=== PATIENT | female | born 1950 | race Caucasian/White ===

== ENCOUNTER 2021-01-20 09:14 | Emergency (ER) | payer OTHER ==
--- OUTSIDE RECORDS SUMMARY | 2021-01-20 09:19 | XMS REPORT | Continuity of Care Document ---
:1950 Author Organization [facility] t Address [address] [place]. [address] [place] [address] Care Team Providers Name Role Phone Anthony WAYNE Primary Care Physician Fabian GOEL, Chris Attending Clinician Unavailable Julio César WAYNE Attending Clinician Santiagoqwfloyd DO Attending Clinician Yung Figueroa DO Attending Clinician Singer ENCINAS Attending Clinician Kendy Villa MD Attending Clinician Jesus Alberto Rivera NP Attending Clinician Doctor Unassigned, Name Attending Clinician Unavailable Ktahy GOEL Attending Clinician VEENA FLORES Attending Clinician Unavailable Anthony Attending Clinician Eduardo Attending Clinician Joseph Alejo Attending Clinician Bridgett Wray Attending Clinician Unavailable Rianon, Velasquez Attending Clinician Aaron Attending Clinician Joseph Gunn Attending Clinician Bridgett Abebe Attending Clinician Donnariana Admitting Clinician Daisy WAYNE, Kendy Admitting Clinician [phone] ANTHONY Admitting Clinician Unavailable Eduardo Admitting Clinician Yury Pagan Admitting Clinician Payers Payer Name Policy Type Policy Number Effective Date Expiration Date S ource Problems Condition Condition Condition Status Onset Resolution Last Treating Co mments Source Name Details Category Date Date Treatment Clinician Date Nausea and Nausea and Disease Active [facility]20 [facility] in adult 00:00: Medica l patient patient 00 Center Esophagiti Esophagiti Disease Active Overview [facility] - [facility]: automatic Medical 00 ally from Center request for surgery [id number] Abdominal Abdominal Disease Active [facility] pain pain 2-06 [facility]: Medical 00 Center Allergies, Adverse Reactions, Alerts Allergy Allergy Status Severity Reaction(s) Onset Inactive Treating Comm ents Source Name Type Date Date Clinician ondanset DA Active [facility] [place] 00:[facility]: d 00 [facility] inflixim DA Active [facility] 7[facility]19 [place] 00:00: d 00 [facility] droperid DA Active [facility] 7[facility]19 Clear 00:00: Mares 00 [facility] metoclop DA Active [facility] r[facility] 7-19 Clear 00:00: Mares 00 [facility] Droperid Propensi Active [place] to 5-28 [facility] adverse 00:00: st reaction 00 s to drug [place] Propensi Active [place] [facility] to 5-28 [facility] adverse 00:00: st reaction 00 s to drug Ondanset Propensi Active [place] [facility] Hcl ty to 528 [facility] adverse 00:00: st reaction 00 s to drug [place] Drug Active Other (See Difficult [facility] Allergy Comments) 2-11 y [facility] - 00:[facility]: urinating Medical 00 and burn Center with urination Inflixim Propensi Active [facility] ty to 10-31 [facility] - adverse 00:00: Medical reaction 00 Center s Ondanset Drug Active Other (See [facility] Hcl Intolera Comments) 10-31 [facility] - (Pf) nce 00:00: Medical 00 Center metoclop DA Active [facility] ramide 02-05 [place] 00:00: d 00 Medical [place] oranges DA Active [facility]- [place] 00:00: d 00 Medical [place] ondanset DA Active [facility] HCl - [place] 00:00: d 00 [facility] droperid DA Active [facility] - [place] 00:00: d 00 [facility] Inflixim Propensi Active [place] to 01-26 [facility] adverse 00:00: st reaction 00 s to drug Social History Social Habit Start Date Stop Date Quantity Comments Source History SDOH [facility] Std Drinks [facility] History [facility] - Alcohol Binge Medical [address] Tobacco use and 2019-03-01 2019-03-[address] [facility] [address] [facility] - exposure 00:00:00 00:00:00 [facility] Alcohol intake 2019-03-01 2019-03-[address] [facility] - 00:00:00 00:00:00 non-drinker of Medical Ce nter alcohol (finding) History SDOH 2018-10-31 2018-10-[address] [facility] - Alcohol Frequency 00:00:00 00:00:00 [facility] Sex Assigned At [birth year] [facility] ethodist 00:00:00 00:00:00 Smoking Status Start Date Stop Date Source Never sm[facility] Medications Ordered Filled Start Stop Current Ordering Indication Dosage Frequency Signature Comments Components Source Medication Medication Date Date Medication? Clinician (SIG) Name Name dicyclomine Yes 20mg Take [address] (BENTYL) 20 6-07 by mouth Luke s - mg tablet 17:56: as needed Med ical 30 . Center apixaban Yes 5mg Q.5D Take [address] [address] (ELIQUIS) 5 6-07 by mouth 2 Che kes - mg Tab 17:56: (two) Medical tablet 30 times Center daily. promethazin 2019-0 Yes 25mg Take [address] e 6-07 by mouth [facility] - (PHENERGAN) 17:56: every 6 Med ical 25 MG 30 (six) Center tablet hours as needed for Nausea. omeprazole 2019-0 Yes 40mg Q.5D Take [address] (PRILOSEC) 6-07 by mouth 2 Kun es - 40 MG 17:56: (two) Medical capsule 30 times Center daily. simvastatin 2019- Yes 80mg QD Take [address] (ZOCOR) 80 6-07 by mouth [facility] - MG tablet 17:56: nightly. Medi lucho 30 Center promethazin 2019-0 Yes 25mg Q8H Take 25 mg [facility] e 5-14 by mouth Methodi (PHENERGAN) 00:00: every 8 st 25 MG 00 (eight) tablet hours as needed. HYDROcodone 2019 Yes 1{tbl} Q8H Take 1 [place] -acetaminop 5-14 tablet by Met hodi hen (NORCO) 00:00: mouth st 10-325 mg 00 every 8 per tablet (eight) hours as needed. ALPRAZolam 2019- Yes .5mg Q8H Take 0.[address] (XANAX) 0.5 5-14 mg by Methodi MG tablet 00:00: mouth st 00 every 8 (eight) hours as needed. metoprolol Yes TAKE 1 [place] tartrate 5-13 TABLET (25 Metho di (LOPRESSOR) 00:00: MG) BY st 25 mg 00 MOUTH ONE tablet DAILY omeprazole Yes TAKE 1 [place] (PriLOSEC) 4-11 CAPSULE Method i 40 MG 00:00: (40 MG) BY st capsule 00 MOUTH 3 TIMES PER DAY 30 MINUTES BEFORE MEALS simvastatin 2018-0 Yes 80mg QD Take 80 mg [place] (ZOCOR) 80 4-08 by mouth Metho di MG tablet 00:00: every st 00 evening. HYDROcodone 2019-0 Yes 1{tbl} Take [address] -acetaminop 1-15 tablet by Kun es - hen (TravelatusCO 00:00: mouth Medica l 10-325) 00 every 6 Center 10-325 mg (six) per tablet hours as needed . metoprolol 2017-09 Yes 25mg QD Take [address] (LOPRESSOR) 1-24 by mouth Luke s - 25 MG 00:00: daily. Medical tablet 00 Center hydroCHLORO 2017-09 Yes edema 12.5mg Take 12.[address] thiazide 1-24 mg by [facility] - (HYDRODIURI 00:00: mouth as Me dical L) 12.5 MG 00 needed . Cente r tablet ALPRAZolam 2014-09 Yes 0.5 mg = [address] (XANAX) 0-29 tab, PO, [facility] - 0.25 MG 00:00: TID, PRN Medica l tablet 00 Anxiety, # Center 15 tab, 0 Refill(s) levETIRAcet Yes 1,000 mg = [place] am (KEPPRA) 05-27 2 tab, PO, Me thodi 500 MG 00:00: BID, # 120 st tablet 00 tab, 0 Refill(s) levETIRAcet Yes 500 mg = [address] [facility] [facility] am (KEPPRA) 05-27 tab, PO, Luke s - 500 MG 00:00: daily , # Medica l tablet 00 120 tab, 0 Center Refill(s) Procedures This patient has no known procedures. Plan of Care Planned Activity Planned Date Details Comments Source Future Scheduled 2021-04-25 INFLUENZA VACCINE [place] [facility] 00:00:00 [code = INFLUENZA VACCINE] Future Scheduled 2020-05-26 INFLUENZA VACCINE (#1) [facility] 00:00:00 [code = INFLUENZA Medical Ce nter VACCINE (#1)] Future Scheduled 2020-02-[address] [facility] - Test 00:00:00 malignant neoplasm of Medica l Center colon (procedure) [code = 355959900] Future Scheduled 2019-09-[address] [facility] - Test 00:00:00 WELLNESS (YEAR 2 or Medical Center FIRST YEAR if no IPPE) [code = MEDICARE ANNUAL WELLNESS (YEAR 2 or FIRST YEAR if no IPPE)] Future Scheduled 2014 65+ PNEUMOCOCCAL [place] [facility] Test 00:00:00 VACCINE (1 of 1 - PPSV23) [code = 65+ PNEUMOCOCCAL VACCINE (1 of 1 - PPSV23)] Future Scheduled 2014 PNEUMOCOCCAL 65+ Y[facility] - Test 00:00:00 (1 of 1 - Medical Center [id number] PCV13) [code = PNEUMOCOCCAL 65+ YRS (1 of 1 - [id number] PCV13)] Future Scheduled 1999 BREAST CANCER [place] [facility] Test 00:00:00 SCREENING [code = BREAST CANCER SCREENING] Future Scheduled 1999 COLONOSCOPY SCREENING [place] [facility] 00:00:00 [code = COLONOSCOPY SCREENING] Future Scheduled 1999 SHINGLES VACCINES (#1) [place] [facility] 00:00:00 [code = SHINGLES VACCINES (#1)] Future Scheduled 1967 Hepatitis C screening [place] [facility] 00:00:00 (procedure) [code = 891556999] Future Scheduled 1965 COVID-19 VACCINE (1) [facility] Test 00:00:00 [code = COVID-19 VACCINE (1)] Future Scheduled [address] - Test 00:00:00 malignant neoplasm of Medica l Center breast (procedure) [code = 588374227] Encounters Start End Encounter Admission Attending Care Care Encounter Source Date/Time Date/Time Type Type Clinicians Facility Department ID 2021-01-04 2021-01-04 Transition Emanuel Peralta [id number] 00:00:00 00:00:00 of Care Douglas Velazquezy [id number] [place] [id number] 2020-12-28 2021-01-01 [facility] Marcelo Angela [facility] [id number] 18:29:00 17:50:00 Encounter Candel[facility] [id number] Clear [id number] [place] [id number] [place] [id number] ([facility]) 2020-12-31 2020-12-31 Surgery [facility] [id number] 09:00:00 10:10:00 Health [id number] Clear [id number] [place] [id number] Hospital 020 ([facility]) 2020-11-24 2020-11-24 Patient Henry [facility] [id number] 00:00:00 00:00:00 Outreach Ravin FRIED [id number] Yung [facility] [id number] [place] [id number] 2020-11-03 2020-11-03 Transition Emanuel Peralta [id number] 00:00:00 00:00:00 of Care Douglas Perez Arana [id number] [place] [id number] 2020-05-04 2020-05-04 Transition Emanuel Peralta [id number] 00:00:00 00:00:00 of Care Douglas Velazquezy [id number] [place] [id number] 2020-04-27 2020-05-01 [facility] Cristiano Perez [facility] [id number] 15:05:00 19:00:00 Encounter Ness Villa [id number] [place] [id number] [place] [id number] 2020-02-13 2020-02-13 Emergency [facility] [id number] 12:57:06 21:00:00 Ivette Boswell [id number] [place] [id number] [place] [id number] 2020-02-13 2020-02-13 Orders Doctor SHAWN [id number] 00:00:00 00:00:00 Only Unassigned, LILO [id number] Booker [facility] [id number] [id number] 2019-12-31 2019-12-31 Transition Emanuel Chavez [id number] 00:00:00 00:00:00 of Care Tabatha Arana [id number] [place] [id number] [id number] 2017-12-01 2017-12-01 Outpatient Anthony, [facility] [id number] 08:41:00 23:59:00 Santino 12 2017-12-01 2017-12-01 Outpatient Anthony, [facility] [id number] 08:41:00 23:59:00 Santino 12 2016-10-26 2016-10-26 Outpatient Azizzadeh, [facility] [id number] 14:06:00 23:59:00 Judy 32 2016-10-24 2016-10-24 Outpatient Arkus, [facility] [id number] 06:44:00 09:20:00 Eusebio Joseph 11 2016-03-14 2016-03-14 Outpatient Azizzadeh, [facility] [id number] 11:06:00 23:59:00 Judy 10 2016-02-29 2016-02-29 Outpatient Kamala, [facility] [id number] 05:21:00 08:28:00 Zo Urias 09 2015-09-15 2015-09-15 Outpatient Arkus, [facility] [id number] 07:35:00 10:00:00 Eusebio Joseph 08 2015-08-31 2015-09-02 Outpatient Christian, [facility] [id number] 09:32:00 19:00:00 Robin Velasquez 07 2015-07-23 2015-08-21 Outpatient Azizzadeh, [facility] 3618 [id number] 08:00:00 23:59:00 Judy 00 2015-08-09 2015-08-17 Outpatient Azizzadeh, [facility] 3618 [id number] 17:27:00 18:05:00 Judy 19 2015-07-07 2015-07-24 Outpatient Azizzadeh, [facility] [id number] [id number] 10:01:00 15:00:00 Judy 60 2015-05-29 2015-05-29 Outpatient Banki, [facility] MH[facility] [id number] 10:24:00 15:50:00 Norma 04 2015-05-20 2015-05-20 Outpatient Banki, [facility] [id number] 12:34:00 23:59:00 Norma 03 2015-05-11 2015-05-11 Outpatient Luis A, [facility] [id number] 14:43:00 23:59:00 Mirza Ruiz 02 2014-09-24 2014-09-24 Outpatient Mis, [facility] [id number] 10:47:00 23:59:00 Samuel Urias 00 Results Test Description Test Time Test Comments Results Result Comments Source CBC W/AUTO DIFF 2019-04-16 05:19:00 Test Item Value Reference Range Interpretation Comme nts WHITE BLOOD CELL (test code = WBC) 11.4 K/mm3 3.5-11.0 H RED BLOOD CELL (test code = RBC) 3.29 M/mm3 4.70-6.10 L HEMOGLOBIN (test code = HGB) 10.2 G/DL 10.4-14.9 L HEMATOCRIT (test code = HCT) 32.4 % 31.5-44.1 N MEAN CELL VOLUME (test code = MCV) 98.5 Fl 84.5-98.6 N MEAN CELL HGB (test code = MCH) 31.0 pg 27.0-34.2 N MEAN CELL HGB CONCETRATION (test code = MCHC) 31.5 G/DL 31.5-34. 0 N RED CELL DISTRIBUTION WIDTH (test code = RDW) 12.8 SD 11.5-14. 5 N PLATELET COUNT (test code = PLT) 191.0 K/mm3 150-450 N MEAN PLATELET VOLUME (test code = MPV) 9.80 fL 7.0-10.5 N NEUTROPHIL % (test code = NT%) 69.3 % 40-76 LYMPHOCYTE % (test code = LY%) 10.1 % 20.5-51.1 L MONOCYTE % (test code = MO%) 13.1 % 1.7-9.3 H EOSINOPHIL % (test code = EO%) 6.8 % 0.0-6.0 H BASOPHIL % (test code = BA%) 0.7 % 0.0-2.0 N NEUTROPHIL # (test code = NT#) 7.92 K/mm3 1.8-7.6 H LYMPHOCYTE # (test code = LY#) 1.2 K/mm3 0.6-3.2 N MONOCYTE # (test code = MO#) 1.5 K/mm3 0.3-1.1 H EOSINOPHIL # (test code = EO#) 0.8 K/mm3 0.0-0.4 H BASOPHIL # (test code = BA#) 0.1 K/mm3 0.0-0.1 N MANUAL DIFF REQUIRED (test code = MDIFF) NO DIFF/SCN CRITERIA BASIC METABOLIC [id number] 05:18:00 Test Item Value Reference Range Interpretation Comments SODIUM (test code = NA) 144 mmol/L 134-147 N POTASSIUM (test code = 3.1 mmol/L 3.4-5.0 L K) CHLORIDE (test code = 114 mmol/L 100-108 H CL) CARBON DIOXIDE (test 21 mmol/L 21-32 N code = CO2) ANION GAP (test code = 9.0 GAP calc 4.0-15.0 N GAP) GLUCOSE (test code = 97 MG/DL 70-110 N GLU) BLOOD UREA NITROGEN 7 MG/DL 7-18 N (test code = BUN) GLOMERULAR FILTRATION >=60 max estimate >60 RATE (test code = GFR) estGFR CREATININE (test code = 0.8 MG/DL 0.6-1.0 N CREAT) CALCIUM (test code = CA) 7.9 MG/DL 8.5-10.1 L PROCALCITONIN (PCT)2019-04-15 14:45:00 Test Item Value Reference Range Interpretation Comments PROCALCITONIN (PCT) 0.85 ng/mL 0.00-0.05 A PROCALCI TONIN (PCT) (test code = PROCAL) NORMAL RANGE (ADULT): <0.05 NG/ML. * a concentration < 0.5 ng/mL represent s a low risk of severe sepsis and/or septic s hock.* a concentration > 2 ng/mL represents a hi gh risk of severe seps is and/or septic shock.Neverthel ess, concentrations <0.5 ng/mL do not ex clude aninfection, on account of localized in fections (withoutsystemi c signs) which can be as sociated with such lowconcentratio ns, or a systemic infect ion in its initialstag es (< 6 hours). Further more, increased procalcitoninca n occur without infecti on. PCT concentrations between 0.5and 2.0 ng/m L should be interpreted taking into account thepatient's hi story. It is recommend ed to retest PCT with in6-24 hours if any concentrations <2 ng/mL are obtained. PROCALCITONIN (PCT)2019-04-15 14:45:00 Test Item Value Reference Range Interpretation Comments PROCALCITONIN (PCT) 0.85 ng/mL 0.00-0.05 H PROCALCI TONIN (PCT) (test code = PROCAL) NORMAL RANGE (ADULT): <0.05 NG/ML. * a concentration < 0.5 ng/mL represent s a low risk of severe sepsis and/or septic s hock.* a concentration > 2 ng/mL represents a hi gh risk of severe seps is and/or septic shock.Neverthel ess, concentrations <0.5 ng/mL do not ex clude aninfection, on account of localized in fections (withoutsystemi c signs) which can be as sociated with such lowconcentratio ns, or a systemic infect ion in its initialstag es (< 6 hours). Further more, increased procalcitoninca n occur without infecti on. PCT concentrations between 0.5and 2.0 ng/m L should be interpreted taking into account thepatient's hi story. It is recommend ed to retest PCT with in6-24 hours if any concentrations <2 ng/mL are obtained. BASIC METABOLIC [id number] 04:23:00 Test Item Value Reference Range Interpretation Comments SODIUM (test code = NA) 144 mmol/L 134-147 N POTASSIUM (test code = 3.5 mmol/L 3.4-5.0 N K) CHLORIDE (test code = 115 mmol/L 100-108 H CL) CARBON DIOXIDE (test 21 mmol/L 21-32 N code = CO2) ANION GAP (test code = 8.0 GAP calc 4.0-15.0 N GAP) GLUCOSE (test code = 102 MG/DL 70-110 N GLU) BLOOD UREA NITROGEN 6 MG/DL 7-18 L (test code = BUN) GLOMERULAR FILTRATION >=60 max estimate >60 RATE (test code = GFR) estGFR CREATININE (test code = 0.7 MG/DL 0.6-1.0 N CREAT) CALCIUM (test code = CA) 8.0 MG/DL 8.5-10.1 L CBC W/AUTO [id number] 04:20:00 Test Item Value Reference Range Interpretation Comments WHITE BLOOD CELL (test code = 7.9 K/mm3 3.5-11.0 N WBC) RED BLOOD CELL (test code = RBC) 3.17 M/mm3 4.70-6.10 L HEMOGLOBIN (test code = HGB) 9.9 G/DL 10.4-14.9 L HEMATOCRIT (test code = HCT) 31.5 % 31.5-44.1 N MEAN CELL VOLUME (test code = 99.4 Fl 84.5-98.6 H MCV) MEAN CELL HGB (test code = MCH) 31.2 pg 27.0-34.2 N MEAN CELL HGB CONCETRATION (test 31.4 G/DL 31.5-34.0 L code = MCHC) RED CELL DISTRIBUTION WIDTH (test 12.9 SD 11.5-14.5 N code = RDW) PLATELET COUNT (test code = PLT) 184.0 K/mm3 150-450 N MEAN PLATELET VOLUME (test code = 9.70 fL 7.0-10.5 N MPV) NEUTROPHIL % (test code = NT%) 54.9 % 40-76 N LYMPHOCYTE % (test code = LY%) 20.3 % 20.5-51.1 L MONOCYTE % (test code = MO%) 13.9 % 1.7-9.3 H EOSINOPHIL % (test code = EO%) 10.0 % 0.0-6.0 H BASOPHIL % (test code = BA%) 0.9 % 0.0-2.0 N NEUTROPHIL # (test code = NT#) 4.34 K/mm3 1.8-7.6 N LYMPHOCYTE # (test code = LY#) 1.6 K/mm3 0.6-3.2 N MONOCYTE # (test code = MO#) 1.1 K/mm3 0.3-1.1 N EOSINOPHIL # (test code = EO#) 0.8 K/mm3 0.0-0.4 H BASOPHIL # (test code = BA#) 0.1 K/mm3 0.0-0.1 N MANUAL DIFF REQUIRED (test code = NO DIFF/SCN CRITERIA MDIFF) BASIC METABOLIC [id number] 07:27:00 Test Item Value Reference Range Interpretation Comments SODIUM (test code = NA) 145 mmol/L 134-147 N POTASSIUM (test code = 3.6 mmol/L 3.4-5.0 N K) CHLORIDE (test code = 117 mmol/L 100-108 H CL) CARBON DIOXIDE (test 20 mmol/L 21-32 L code = CO2) ANION GAP (test code = 8.0 GAP calc 4.0-15.0 N GAP) GLUCOSE (test code = 91 MG/DL 70-110 N GLU) BLOOD UREA NITROGEN 7 MG/DL 7-18 N (test code = BUN) GLOMERULAR FILTRATION >=60 max estimate >60 RATE (test code = GFR) estGFR CREATININE (test code = 0.6 MG/DL 0.6-1.0 N CREAT) CALCIUM (test code = CA) 7.8 MG/DL 8.5-10.1 L CBC W/AUTO [id number] 07:21:00 Test Item Value Reference Range Interpretation Comments WHITE BLOOD CELL (test code = 8.2 K/mm3 3.5-11.0 N WBC) RED BLOOD CELL (test code = RBC) 2.97 M/mm3 4.70-6.10 L HEMOGLOBIN (test code = HGB) 9.4 G/DL 10.4-14.9 L HEMATOCRIT (test code = HCT) 29.7 % 31.5-44.1 L MEAN CELL VOLUME (test code = 100.0 Fl 84.5-98.6 H MCV) MEAN CELL HGB (test code = MCH) 31.6 pg 27.0-34.2 N MEAN CELL HGB CONCETRATION (test 31.6 G/DL 31.5-34.0 N code = MCHC) RED CELL DISTRIBUTION WIDTH (test 12.9 SD 11.5-14.5 N code = RDW) PLATELET COUNT (test code = PLT) 173.0 K/mm3 150-450 N MEAN PLATELET VOLUME (test code = 9.80 fL 7.0-10.5 N MPV) NEUTROPHIL % (test code = NT%) 59.3 % 40-76 LYMPHOCYTE % (test code = LY%) 17.6 % 20.5-51.1 L MONOCYTE % (test code = MO%) 13.2 % 1.7-9.3 H EOSINOPHIL % (test code = EO%) 8.9 % 0.0-6.0 H BASOPHIL % (test code = BA%) 1.0 % 0.0-2.0 N NEUTROPHIL # (test code = NT#) 4.83 K/mm3 1.8-7.6 N LYMPHOCYTE # (test code = LY#) 1.4 K/mm3 0.6-3.2 N MONOCYTE # (test code = MO#) 1.1 K/mm3 0.3-1.1 N EOSINOPHIL # (test code = EO#) 0.7 K/mm3 0.0-0.4 H BASOPHIL # (test code = BA#) 0.1 K/mm3 0.0-0.1 N MANUAL DIFF REQUIRED (test code = NO DIFF/SCN CRITERIA MDIFF) PROCALCITONIN (PCT)2019-04-13 15:03:00 Test Item Value Reference Range Interpretation Comments PROCALCITONIN (PCT) 3.67 ng/mL 0.00-0.05 A PROCALC ITONIN (PCT) (test code = PROCAL) NORMAL RANGE (ADULT): <0.05 NG/ML. * a concentration < 0.5 ng/mL represent s a low risk of severe sepsis and/or septic s hock.* a concentration > 2 ng/mL represents a hi gh risk of severe seps is and/or septic shock.Neverthel ess, concentrations <0.5 ng/mL do not ex clude aninfection, on account of localized in fections (withoutsystemi c signs) which can be as sociated with such lowconcentratio ns, or a systemic infect ion in its initialstag es (< 6 hours). Further more, increased procalcitoninca n occur without infecti on. PCT concentrations between 0.5and 2.0 ng/m L should be interpreted taking into account thepatient's hi story. It is recommend ed to retest PCT with in6-24 hours if any concentrations <2 ng/mL are obtained. PROCALCITONIN (PCT)2019-04-13 15:02:00 Test Item Value Reference Range Interpretation Comments PROCALCITONIN (PCT) 3.67 ng/mL 0.00-0.05 H PROCALC ITONIN (PCT) (test code = PROCAL) NORMAL RANGE (ADULT): <0.05 NG/ML. * a concentration < 0.5 ng/mL represent s a low risk of severe sepsis and/or septic s hock.* a concentration > 2 ng/mL represents a hi gh risk of severe seps is and/or septic shock.Neverthel ess, concentrations <0.5 ng/mL do not ex clude aninfection, on account of localized in fections (withoutsystemi c signs) which can be as sociated with such lowconcentratio ns, or a systemic infect ion in its initialstag es (< 6 hours). Further more, increased procalcitoninca n occur without infecti on. PCT concentrations between 0.5and 2.0 ng/m L should be interpreted taking into account thepatient's hi story. It is recommend ed to retest PCT with in6-24 hours if any concentrations <2 ng/mL are obtained. [id number] 08:08:00 Test Item Value Reference Range Interpretation Comments TROPONIN-I (test < 0.015 NG/ML 0.000-0.045 N Negative: </= 0.045 code = TROPI) Positive: >/= 0.046 Correlation wit h serial results, other cardiac markers, and cl inical findings is nec essary to determine the c linical significance of this result. Quantit ative results using d ifferent methodologies s hould not be compared to one another as nume rical results may miguel yby method. Completed by Nursing: NOCOMPREHENSIVE METABOLIC [id number] 07:53:00 Test Item Value Reference Range Interpretation Comments SODIUM (test code = NA) 143 mmol/L 134-147 N POTASSIUM (test code = 3.7 mmol/L 3.4-5.0 N K) CHLORIDE (test code = 114 mmol/L 100-108 H CL) CARBON DIOXIDE (test 21 mmol/L 21-32 N code = CO2) ANION GAP (test code = 8.0 GAP calc 4.0-15.0 N GAP) GLUCOSE (test code = 117 MG/DL 70-110 H GLU) BLOOD UREA NITROGEN 9 MG/DL 7-18 N (test code = BUN) GLOMERULAR FILTRATION >=60 max estimate >60 RATE (test code = GFR) estGFR CREATININE (test code = 0.8 MG/DL 0.6-1.0 N CREAT) TOTAL PROTEIN (test code 5.6 G/DL 6.4-8.2 L = PROT) ALBUMIN (test code = 2.7 G/DL 3.4-5.0 L ALB) GLOBULIN (test code = 2.9 GM/dL GLOB) ALBUMIN/GLOBULIN RATIO 0.9 RATIO 1.2-2.2 L (test code = A/G) CALCIUM (test code = CA) 7.5 MG/DL 8.5-10.1 L BILIRUBIN TOTAL (test 0.20 MG/DL 0.2-1.2 N code = BILT) SGOT/AST (test code = 25 Unit/L 15-37 N AST) SGPT/ALT (test code = 17 Unit/L 12-78 N ALT) ALKALINE PHOSPHATASE 56 Unit/L 45-117 N TOTAL (test code = ALKP) Comment: in [facility] W/AUTO [id number] 07:49:00 Test Item Value Reference Range Interpretation Comments WHITE BLOOD CELL (test code = 8.7 K/mm3 3.5-11.0 N WBC) RED BLOOD CELL (test code = RBC) 2.84 M/mm3 4.70-6.10 L HEMOGLOBIN (test code = HGB) 8.8 G/DL 10.4-14.9 L HEMATOCRIT (test code = HCT) 28.7 % 31.5-44.1 L MEAN CELL VOLUME (test code = 101.1 Fl 84.5-98.6 H MCV) MEAN CELL HGB (test code = MCH) 31.0 pg 27.0-34.2 N MEAN CELL HGB CONCETRATION (test 30.7 G/DL 31.5-34.0 L code = MCHC) RED CELL DISTRIBUTION WIDTH (test 13.0 SD 11.5-14.5 N code = RDW) PLATELET COUNT (test code = PLT) 176.0 K/mm3 150-450 N MEAN PLATELET VOLUME (test code = 9.60 fL 7.0-10.5 N MPV) NEUTROPHIL % (test code = NT%) 68.4 % 40-76 N LYMPHOCYTE % (test code = LY%) 12.7 % 20.5-51.1 L MONOCYTE % (test code = MO%) 13.6 % 1.7-9.3 H EOSINOPHIL % (test code = EO%) 4.7 % 0.0-6.0 N BASOPHIL % (test code = BA%) 0.6 % 0.0-2.0 N NEUTROPHIL # (test code = NT#) 5.96 K/mm3 1.8-7.6 N LYMPHOCYTE # (test code = LY#) 1.1 K/mm3 0.6-3.2 N MONOCYTE # (test code = MO#) 1.2 K/mm3 0.3-1.1 H EOSINOPHIL # (test code = EO#) 0.4 K/mm3 0.0-0.4 N BASOPHIL # (test code = BA#) 0.1 K/mm3 0.0-0.1 N MANUAL DIFF REQUIRED (test code = NO DIFF/SCN CRITERIA MDIFF) Comment: in [id number] 00:33:00 Test Item Value Reference Range Interpretation Comments TROPONIN-I (test < 0.015 NG/ML 0.000-0.045 N Negative: </= 0.045 code = TROPI) Positive: >/= 0.046 Correlation wit h serial results, other cardiac markers, and cl inical findings is nec essary to determine the c linical significance of this result. Quantit ative results using d ifferent methodologies s hould not be compared to one another as nume rical results may miguel yby method. Completed by Nursing: CHLOE RFLX MICR CULT IF [id number] 23:11:00 Test Item Value Reference Range Interpretation Comments UA COLOR (test code = YELLOW discript YEL/STRAW COLU) UA APPEARANCE (test code CLEAR discript CLEAR = APPU) UA GLUCOSE DIPSTICK (test NEGATIVE mg/dL NEG code = DGLUU) UA BILIRUBIN DIPSTICK NEGATIVE mg/dL NEG (test code = BILU) UA KETONE DIPSTICK (test NEGATIVE mg/dL NEG code = KETU) UA SPECIFIC GRAVITY (test <=1.005 SG 1.005-1.030 code = SGU) UA BLOOD DIPSTICK (test NEGATIVE mg/DL NEG code = JANET) UA PH DIPSTICK (test code 5.5 pH UNITS 5.0-7.0 = TIGRE) UA PROTEIN DIPSTICK (test NEGATIVE mg/dL NEG code = PROU) UA UROBILINIOGEN DIPSTICK 0.2 mg/dL <2.0 (test code = URO) UA NITRITE DIPSTICK (test NEGATIVE SCREEN NEG code = ALLIE) UA LEUKOCYTE ESTERASE TRACE Leuk/mcL NEGATIVE A DIPSTICK (test code = LEUU) UA WBC (test code = WBCU) 3-5 #WBC/HPF 0-3 A UA RBC (test code = RBCU) 1-3 #RBC/HPF 0-3 UA BACTERIA (test code = TRACE /HPF NONE-TRACE BACU) UA SQUAMOUS CELLS (test TRACE /HPF NONE code = SQU) UA CULTURE NEEDED? (test NO, WBC<10 Criteria Culture CHK code = UACULT) SOURCE OF URINE: CLEAN CATCHIndication for culture: Suprapubic PainUA RFLX MICR CULT IF [id number] 23:05:00 Test Item Value Reference Range Interpretation Comments UA COLOR (test code = COLU) YELLOW discript YEL/STRAW UA APPEARANCE (test code = CLEAR discript CLEAR APPU) UA GLUCOSE DIPSTICK (test NEGATIVE mg/dL NEG code = DGLUU) UA BILIRUBIN DIPSTICK (test NEGATIVE mg/dL NEG code = BILU) UA KETONE DIPSTICK (test code NEGATIVE mg/dL NEG = KETU) UA SPECIFIC GRAVITY (test <=1.005 SG 1.005-1.030 code = SGU) UA BLOOD DIPSTICK (test code NEGATIVE mg/DL NEG = JANET) UA PH DIPSTICK (test code = 5.5 pH UNITS 5.0-7.0 TIGRE) UA PROTEIN DIPSTICK (test NEGATIVE mg/dL NEG code = PROU) UA UROBILINIOGEN DIPSTICK 0.2 mg/dL <2.0 (test code = URO) UA NITRITE DIPSTICK (test NEGATIVE SCREEN NEG code = ALLIE) UA LEUKOCYTE ESTERASE TRACE Leuk/mcL NEGATIVE A DIPSTICK (test code = LEUU) UA CULTURE NEEDED? (test code Criteria Culture CHK = UACULT) SOURCE OF URINE: CLEAN CATCHIndication for culture: Suprapubic PainCBC W/AUTO [id number] 20:46:00 Test Item Value Reference Range Interpretation Comments WHITE BLOOD CELL (test code = 18.3 K/mm3 3.5-11.0 H WBC) RED BLOOD CELL (test code = RBC) 3.37 M/mm3 4.70-6.10 L HEMOGLOBIN (test code = HGB) 10.6 G/DL 10.4-14.9 N HEMATOCRIT (test code = HCT) 33.6 % 31.5-44.1 N MEAN CELL VOLUME (test code = 99.7 Fl 84.5-98.6 H MCV) MEAN CELL HGB (test code = MCH) 31.5 pg 27.0-34.2 N MEAN CELL HGB CONCETRATION (test 31.5 G/DL 31.5-34.0 N code = MCHC) RED CELL DISTRIBUTION WIDTH 12.9 SD 11.5-14.5 N (test code = RDW) PLATELET COUNT (test code = PLT) 167.0 K/mm3 150-450 N MEAN PLATELET VOLUME (test code 9.80 fL 7.0-10.5 N = MPV) MANUAL DIFF REQUIRED (test code YES DIFF/SCN CRITERIA = MDIFF) WBC [id number] 20:46:00 Test Item Value Reference Range Interpretation Comments SEGMENTED NEUTROPHILS (test 86 % 40-75 H code = SEG) BAND NEUTROPHIL (test code 1 % 0-8 N = BAND) LYMPHOCYTE (test code = 1 % 18.7-40.6 L LYMPH) MONOCYTE (test code = MON) 12 % 3.8-11.4 H ANISOCYTOSIS (test code = NORMAL NONE ANISO) PLATELET ESTIMATE (test ADEQUATE THOUSAND ADEQUATE code = PLTEST) PLATELET MORPHOLOGY (test NORMAL code = PLTMORPH) - CT ABD PELVIS [id number] 20:34:00 Name: HERMELINDA JIM [facility] : 1950 Age/S: 68 / F [address] [facility] Unit #: [id number] Loc: [place] [address] Phys: Samuel Carranza MD Acct: [id number] Dis Date: Status: ADM IN PHONE #: [phone] Exam Date: 04/12/20192015 FAX #: Reason: LLQ pain, hx of chron's EXAMS: CPT: [id number] CT ABD PELVIS W/CONT 03058 CT ABDOMEN AND PELVIS ( with intravenous contrast ) Location Code: S17 CLINICAL INDICATIONS: Left lower quadrant pain. History of Crohn's disease TECHNIQUE: Volumetric acquisition of abdomen from the level of the domes of the diaphragm through the symphysis pubis using 5 mm collimation after the administration of intravenous and oral contrast. Axial and coronal images were interpreted. Dose lowering technique with automatic exposure control utilized. COMPARISON: None available. FINDINGS: Visualized lung bases demonstrate no consolidations or effusions. Thoracic aortic stent is partially visualized. Liver, spleen, pancreas, adrenals and both kidneys are unremarkable. Landeros rgically absent gallbladder, with mild dilatation of the common duct and proximal intrahepaticbiliary tree. Mild pneumobilia visualized. No hydronephrosis seen. Surgical sutures by the distal stomach noted. Visualized loops of bowel are within normal limits. Appendix is not readily identified. Moderate retained fecal material within the proximal to mid colon No evidence of diverticular disease or diverticulitis. Aorta tapers normally without aneurysmal dilatation. No lymphadenopathy. CT Pelvis: The urinary bladder is unremarkable. Uterus surgically absent. Visualized osseous structures demonstrate degenerative changes lower lumbar spine IMPRESSION: 1.No evidence of diverticular disease or diverticulitis. 2. Proximal to mid constipation. 3. Mild hepatic steatosis. PAGE 1 Signed Report (CONTINUED) Name: HERMELINDA JIM [facility] : 1950ge/S: 68 / F [address] [place] Unit #: [id number] Loc: [place] [address] Phys: Samuel Carranza MD Acct: [id number] Dis Date: Status: ADM IN PHONE#: [phone] Exam Date: 04/12/20192015 FAX #: Reason:LLQ pain, hx of chron's EXAMS: CPT: [id number] CT ABD PELVIS W/CONT 25072 <Continued> 4. Status post cholecystectomy, with prominence of the common duct. Mild pn eumobilia. 5. IVC filter and distal thoracic aortic stent noted at 2033 Reported and signed by: Jeremy Calles M.D. CC: Lyubov Parker ANTHROPOLOGICAL LINGUIST; Samuel Carranza MD Technologist:RT Ruben(R)(CT); Fernandez CTDI: DLP: Trnscb Date/Time: 04/12/2019 (2033) [email or web address] Orig Print D/T: S: 04/12/2019 (2036) PAGE 2 Signed Report- CT ABD PELVIS [id number] 20:34:00 Name: HERMELINDA JIM [facility] : 1950 Age/S: 68 / F [place] Unit #: [id number] Loc: [place] [address] Phys: Samuel Carranza MD Acct: [id number] Dis Date: Status: REG ER PHONE #: [phone] Exam Date: 04/12/20192015 FAX #: Reason: LLQ pain, hx of chron's EXAMS: CPT: [id number] CT ABD PELVIS W/CONT 04184 CT ABDOMEN AND PELVIS ( with intravenous contrast ) Location Code: S17 CLINICAL INDICATIONS: Left lower quadrant pain. History of Crohn's disease TECHNIQUE: Volumetric acquisition of abdomen from the level of the domes of the diaphragm through the symphysis pubis using 5 mm collimation after the administration of intravenous and oral contrast. Axial and coronal images were interpreted. Dose lowering technique with automatic exposure control utilized. COMPARISON: None available. FINDINGS: Visualized lung bases demonstrate no consolidations or effusions. Thoracic aortic stent is partially visualized. Liver, spleen, pancreas, adrenals and both kidneys are unremarkable. Surgically absent gallbladder, with mild dilatation of the common duct and proximal intrahepaticbiliary tree. Mild pneumobilia visualized. No hydronephrosis seen. Surgical sutures by the distal stomach noted. Visualized loops of bowel are within normal limits. Appendix is not readily identified. Moderate retained fecal material within the proximal to mid colon No evidence of diverticular disease or diverticulitis. Aorta tapers normally without aneurysmal dilatation. No lymphadenopathy. CT Pelvis: The urinary bladder is unremarkable. Uterus surgically absent. Visualized osseous structures demonstrate degenerative changes lower lumbar spine IMPRESSION: 1.No evidence of diverticular disease or diverticulitis. 2. Proximal to mid constipation. 3. Mild hepatic steatosis. PAGE 1 Signed Report (CONTINUED) Name: [facility] : 1950ge/S: 68 / F [place] Unit #: [id number] Loc: [place] [address] Phys: Samuel Carranza MD Acct: [id number] Dis Date: Status: REG ER PHONE#: [phone] Exam Date: 04/12/20192015 FAX #: Reason:LLQ pain, hx of chron's EXAMS: CPT: [id number] CT ABD PELVIS W/CONT 04108 <Continued> 4. Status post cholecystectomy, with prominence of the common duct. Mild pneumobilia. 5. IVC filter and distal thoracic aortic stent noted at 2033 Reported and signed by: Jeremy Calles M.D. CC: Lyubov Parker NP; Samuel Carranza MD Technologist:Ronda Vela RT(R)(CT); Fernandez CTDI: DLP: Trnscb Date/Time: 04/12/2019 (2033) [email or web address] Orig Print D/T: S: 04/12/2019 (2036) PAGE 2 Signed Report- XR CHEST 1 [id number] 19:57:00 Name: HERMELINDA JIMILVIE [facility] : 1950 Age/S: 68 / F [id number] [place] Unit #: [id number] Loc: [place] [address] Phys: Samuel Carranza MD Acct: [id number] Dis Date: Status: ADM IN PHONE #: [phone] Exam Date: 04/12/2019 1851 FAX #: Reason: Suspected Sepsis EXAMS: CPT: [id number] XR CHEST 1 V 25527 Fluoro Time: DAP (Gy m2): Air Kerma (mGy): CHEST X-RAY 1 VIEW Dictation Location:N13 CLINICAL HISTORY: Sepsis and fever Technique: A single frontal view of the chest was obtained. FINDINGS: Bony structures are unremarkable. Stenting is present in the proximal aorta, which is positioned to the right ofmidline. Hilar outlines are normal. Cardiac size within normal limits. Surgical clips are noted in the right upper quadrant abdomen. There is a Mediport in place from the left with its tip projecting at the SVC. The lungs are clear of infiltrates or suspicious nodules. Nopleural effusion or pneumothorax. IMPRESSION: No acute findings. Clear lungs. Surgical changes to the aorta noted. Electronically Signedby Charis Vela on 04/12/2019 at 1957 Reported and signed by: Suzanne Vela M.D. CC: Lyubov Parker NP; Samuel Carranza MD PAGE 1 Signed Report Name: HERMELINDA JIMILVIE [facility] : 1950 Age/S: 68 / F [id number] [place] Unit #: [id number] Loc: [place] [address] Phys: Samuel Carranza MD Acct: [id number] Dis Date: Status: ADM IN PHONE #: [phone] Date: 04/12/2019 185 FAX #: Reason: Suspected Sepsis EXAMS: CPT: [id number] XR CHEST 1 V 69193 Fluoro Time: DAP (Gy m2): Air Kerma (mGy): <Continued> Technologist: Fernandez Echevarria RT(R)(CT) Trnscb Date/Time: 04/12/2019 (1956) [email or web address] Orig Print D/T: S: 04/12/2019 (1999) PAGE 2 Signed Report- XR CHEST 1 [id number] 19:57:00 Name: HERMELINDA JIM [facility] : 1950 Age/S: 68 / F [address] [place] Unit #: [id number] Loc: [place] [address] Phys: Samuel Carranza MD Acct: [id number] Dis Date: Status: REG ER PHONE #: [phone] Exam Date: 04/12/2019 185 FAX #: Reason: Suspected Sepsis EXAMS: CPT: [id number] XR CHEST 1 V 64952 Fluoro Time: DAP (Gy m2): Air Kerma (mGy): CHEST X-RAY 1 VIEW Dictation Location:N13 CLINICAL HISTORY: Sepsis and fever Technique: A single frontal view of the chest was obtained. FINDINGS: Bony structures are unremarkable. Stenting is present in the proximal aorta, which is positioned to the right ofmidline. Hilar outlines are normal. Cardiac size within normal limits. Surgical clips are noted in the right upper quadrant abdomen. There is a Mediport in place from the left with its tip projecting at the SVC. The lungs are clear of infiltrates or suspicious nodules. Nopleural effusion or pneumothorax. IMPRESSION: No acute findings. Clear lungs. Surgical changes to the aorta noted. Electronically Signedby Charis Vela on 04/12/2019 at 195 Reported and signed by: Suzanne Vela M.D. CC: Lyubov Parker ANTHROPOLOGICAL LINGUIST; Samuel Carranza MD PAGE 1 Signed Report Name: HERMELINDA JIM [place] : 1950 Age/S: 68 / F [address] [place] Unit #: [id number] Loc: [place] [address] Phys: Samuel Carranza MD Acct: [id number] Dis Date: Status: REG ER PHONE #: [phone] Date: 04/12/2019 6134 FAX #: Reason: Suspected Sepsis EXAMS: CPT: [id number] XR CHEST 1 V 63052 Fluoro Time: DAP (Gy m2): Air Kerma (mGy): <Continued> Technologist: Fernandez Echevarria RT(R)(CT) Trnscb Date/Time: 04/12/2019 (1956) [email or web address] Orig Print D/T: S: 04/12/2019 (1999) PAGE 2 Signed ReportCOMPREHENSIVE METABOLIC PANEL 2019-04-12 19:37:00 Test Item Value Reference Range Interpretation Comments SODIUM (test code = NA) 141 mmol/L 134-147 N POTASSIUM (test code = 3.9 mmol/L 3.4-5.0 N K) CHLORIDE (test code = 111 mmol/L 100-108 H CL) CARBON DIOXIDE (test 20 mmol/L 21-32 L code = CO2) ANION GAP (test code = 10.0 GAP calc 4.0-15.0 N GAP) GLUCOSE (test code = 98 MG/DL 70-110 N GLU) BLOOD UREA NITROGEN 12 MG/DL 7-18 N (test code = BUN) GLOMERULAR FILTRATION >=60 max estimate >60 RATE (test code = GFR) estGFR CREATININE (test code = 0.9 MG/DL 0.6-1.0 N CREAT) TOTAL PROTEIN (test code 6.8 G/DL 6.4-8.2 N = PROT) ALBUMIN (test code = 3.3 G/DL 3.4-5.0 L ALB) GLOBULIN (test code = 3.5 GM/dL GLOB) ALBUMIN/GLOBULIN RATIO 0.9 RATIO 1.2-2.2 L (test code = A/G) CALCIUM (test code = CA) 8.0 MG/DL 8.5-10.1 L BILIRUBIN TOTAL (test 0.20 MG/DL 0.2-1.2 N code = BILT) SGOT/AST (test code = 28 Unit/L 15-37 N AST) SGPT/ALT (test code = 19 Unit/L 12-78 N ALT) ALKALINE PHOSPHATASE 70 Unit/L 45-117 N TOTAL (test code = ALKP) CBC W/AUTO [id number] 19:20:00 Test Item Value Reference Range Interpretation Comments WHITE BLOOD CELL (test code = 18.3 K/mm3 3.5-11.0 H WBC) RED BLOOD CELL (test code = RBC) 3.37 M/mm3 4.70-6.10 L HEMOGLOBIN (test code = HGB) 10.6 G/DL 10.4-14.9 N HEMATOCRIT (test code = HCT) 33.6 % 31.5-44.1 N MEAN CELL VOLUME (test code = 99.7 Fl 84.5-98.6 H MCV) MEAN CELL HGB (test code = MCH) 31.5 pg 27.0-34.2 N MEAN CELL HGB CONCETRATION (test 31.5 G/DL 31.5-34.0 N code = MCHC) RED CELL DISTRIBUTION WIDTH 12.9 SD 11.5-14.5 N (test code = RDW) PLATELET COUNT (test code = PLT) 167.0 K/mm3 150-450 N MEAN PLATELET VOLUME (test code 9.80 fL 7.0-10.5 N = MPV) MANUAL DIFF REQUIRED (test code YES DIFF/SCN CRITERIA = MDIFF) WBC [id number] 19:20:00 Test Item Value Reference Range Interpretation Comments SEGMENTED NEUTROPHILS (test code = SEG) % 40-75 LYMPHOCYTE (test code = LYMPH) % 18.7-40.6 CBC W/AUTO [id number] 19:20:00 Test Item Value Reference Range Interpretation Comments WHITE BLOOD CELL (test code = 18.3 K/mm3 3.5-11.0 H WBC) RED BLOOD CELL (test code = RBC) 3.37 M/mm3 4.70-6.10 L HEMOGLOBIN (test code = HGB) 10.6 G/DL 10.4-14.9 N HEMATOCRIT (test code = HCT) 33.6 % 31.5-44.1 N MEAN CELL VOLUME (test code = 99.7 Fl 84.5-98.6 H MCV) MEAN CELL HGB (test code = MCH) 31.5 pg 27.0-34.2 N MEAN CELL HGB CONCETRATION (test 31.5 G/DL 31.5-34.0 N code = MCHC) RED CELL DISTRIBUTION WIDTH 12.9 SD 11.5-14.5 N (test code = RDW) PLATELET COUNT (test code = PLT) 167.0 K/mm3 150-450 N MEAN PLATELET VOLUME (test code 9.80 fL 7.0-10.5 N = MPV) MANUAL DIFF REQUIRED (test code YES DIFF/SCN CRITERIA = MDIFF) WBC [id number] 19:20:00 Test Item Value Reference Range Interpretation Comments SEGMENTED NEUTROPHILS (test code = SEG) % 40-75 LYMPHOCYTE (test code = LYMPH) % 18.7-40.6 TROPONIN I [id number] 19:13:00 Test Item Value Reference Range Interpretation Comments TROPONIN I RAPID 0.00 ng/mL 0.00-0.08 N - The use o f serial (test code = sampling and te sting TROPIRAP) protocol is a recommended pra ctice- An elevated tro ponin level alone is often not sufficient for diagnosis of my ocardial infarction. LACTIC ACID [id number] 18:56:00 Test Item Value Reference Range Interpretation Comments LACTIC ACID POC (test code = 1.27 MMOL/L 0.90-1.70 N LACTP) TISSUE [id number] 09:45:00Surgical Pathology Report Case: [id number] Authorizing Provider: Georgiana Marquez MD Collected: 02/28/2019 1004 Ordering Location: [address] Med/Surg Received: 02/28/2019 1022 Pathologist: Suzanne Morales MD Specimens: A) - Biopsy, Gastric B) -Biopsy, Esophagus A. STOMACH, BIOPSY: - ANTRAL AND OXYNTIC MUCOSA WITH CHRONIC INACTIVE GASTRITIS - NO INTESTINAL METAPLASIA, DYSPLASIAOR MALIGNANCY SEEN - NEGATIVE FOR H. PYLORI ORGANISMSB. ESOPHAGUS, BIOPSY: - SUPERFICIAL FRAGMENTS OF SQUAMOUS EPITHELIUM WITH MILD CHRONIC INFLAMMATION - SEPARATE MINUTE FRAGMENT OF COLUMNAR EPITHELIUM WITH NO SIGNIFICANT PATHOLOGIC ALTERATION - NO INTESTINAL METAPLASIA, DYSPLASIA OR MALIGNANCY SEEN Signing Pathologist Direct Phone Line: [phone] signed by Suzanne Morales MD on 03/01/2019 at 9:45 AMMG/[id number] Esophagitis A. Biopsy gastric. B. Biopsy esophagus Specimen A is received in fixative and designated as "biopsy gastric", consists of two pink-sewell tissue fragments ranging in size from 0.3 to 0.5 cm in greatest dimension. Both tissue fragments are submitted into A1.Specimen B is received in fixative and designated as "biopsy esophagus", consists of two white-sewell tissue fragments ranging in size from 0.1 to 0.2 cm in greatest dimension. Both tissue fragments are submitted into B1. MG/ew A-B. Performed The interpretation of this case included the use of immunohistochemistry or special stains.Jazmyn Schmidt: Negative for Helicobacter pylori organisms.Control Slides Examined: In-house known positive controls were evaluated along with the testtissue. These control slides run alongside of the patients sample show appropriate staining. Internal positive and negative controls when available are evaluatedSt. [facility], [facility], [address] [place] [address], [facility], Department of Pathology, [address] [place] [address], [facility], Department of Pathology, [address] [place] [address], ZO, [id number] 17:14:00WITH ORAL CONTRASTFINAL REPORT CT of the abdomen and pelvis History: Abdominal distention Comparison: CTA of the chest abdomen and pelvis dated 02/21/2019. Technique: Multidetector CT scanning of the abdomen and pelvis was performed from the level of the lung bases to the inferior pubic ramus without IV and with oral contrast.DOSE REDUCTION: The examination was performed according to departmental dose-optimization program which includes automated exposure control, adjustment of the mA and/or kV according to patient size and/or use of iterative reconstruction technique. Discussion: The patient has a right-sided thoracic aorta. End of the stent is partially visu alized within the thoracic aorta. There is a trace right pleural effusion. Bibasilar atelectasis is present. Lack of IV contrast evaluation of solid and hollow visceral organs. No focal hepatic lesionsare identified. Pneumobilia is present likely from prior sphincterotomy. The gallbladder is surgically absent. The spleen is within normal limits. The bilateral adrenal glands are unremarkable. The kidneys are normal in size. There is no hydroureteronephrosis bilaterally. No obstructing renal calculi are identified. The patient is status post gastrojejunostomy. The small bowel is decompressed. There is a large amount of retained fecal material in the transverse colon which extends down into the pelvis. The descending and sigmoid colon are relatively decompressed. There are scattered colonic diverticula without evidence of acute diverticulitis. There is no free intraperitoneal air or ascites. The urinary bladder is within normal limits. Patient is status post hysterectomy. The abdominal aorta is of normal course and caliber. No acute osseous abdomen bodies are identified. IMPRESSION:1. Large amount of retained fecal material in the colon compatible with constipation.2. Status post gastrojejunostomy, hysterectomy, and cholecystectomy. Signed: Layton Leger Verified Date/Time: 02/29/20 17:14:55 Reading Location: [facility] Radiology Reading Room RAD, ABDOMEN/KUB 1 VIEW [id number] 14:30:00Reason for exam:->abdominal pain and distentionShould this be performed at the bedside?->YesFINAL REPORT Abdomen, one view CLINICAL INDICATION: Abdominal pain and distention COMPARISON: CT the abdomen and pelvis dated 02/21/2019 IMPRESSION: There is mild gaseous distention of the colon. No dilated loops of small bowel are identified. IVC filter is in place. Cholecystectomy clips are identified in the right upper quadrant. Signed: Layton Leger MDRzurdoVendigi Verified Date/Time: 02/28/2019 14:30:59 Reading Location: [facility] Radiology Reading Room [facility] METABOLIC PANEL 2019-02-27 11:07:00 Test Item Value Reference Range Interpretation Comments SODIUM (BEAKER) 141 meq/L 135-148 (test code = 381) POTASSIUM (BEAKER) 3.8 meq/L 3.6-5.5 (test code = 379) CHLORIDE (BEAKER) 111 meq/L 98-106 H (test code = 382) CO2 (BEAKER) (test 22 meq/L 20-29 code = 355) BLOOD UREA NITROGEN 9 mg/dL 10-26 L (BEAKER) (test code = 354) CREATININE (BEAKER) 0.78 mg/dL 0.50-1.20 (test code = 358) GLUCOSE RANDOM 103 mg/dL 70-110 (BEAKER) (test code = 652) CALCIUM (BEAKER) 8.1 mg/dL 8.5-10.5 L (test code = 697) EGFR (BEAKER) (test 73 mL/min/1.73 ESTIMA BEENA GFR IS code = 1092) sq m NOT ACCURATE CREATININE CLEARANCE IN PREDICTING GLOMERULAR FILTRATION RATE . ESTIMATED GFR I S NOT APPLICABLE FOR DIALYSIS PATIEN TS. CBC W/PLT COUNT & AUTO [id number] 10:52:00 Test Item Value Reference Range Interpretation Comments WHITE BLOOD CELL COUNT (BEAKER) 12.9 K/ L 4.0-10.0 H (test code = 775) RED BLOOD CELL COUNT (BEAKER) 3.63 M/ L 4.00-5.00 L (test code = 761) HEMOGLOBIN (BEAKER) (test code = 11.3 GM/DL 12.0-15.5 L 410) HEMATOCRIT (BEAKER) (test code = 33.6 % 36.0-46.0 L 411) MEAN CORPUSCULAR VOLUME (BEAKER) 92.6 fL 82.0-99.0 (test code = 753) MEAN CORPUSCULAR HEMOGLOBIN 31.1 pg 27.0-33.0 (BEAKER) (test code = 751) MEAN CORPUSCULAR HEMOGLOBIN CONC 33.6 GM/DL 32.0-36.0 (BEAKER) (test code = 752) RED CELL DISTRIBUTION WIDTH 13.2 % 12.0-15.0 (BEAKER) (test code = 412) PLATELET COUNT (BEAKER) (test 231 K/CU MM 150-430 code = 756) MEAN PLATELET VOLUME (BEAKER) 9.5 fL 6.0-11.5 (test code = 754) NUCLEATED RED BLOOD CELLS 0 /100 WBC 0-0 (BEAKER) (test code = 413) NEUTROPHILS RELATIVE PERCENT 72 % (BEAKER) (test code = 429) LYMPHOCYTES RELATIVE PERCENT 12 % (BEAKER) (test code = 430) MONOCYTES RELATIVE PERCENT 13 % (BEAKER) (test code = 431) EOSINOPHILS RELATIVE PERCENT 1 % (BEAKER) (test code = 432) BASOPHILS RELATIVE PERCENT 0 % (BEAKER) (test code = 437) NEUTROPHILS ABSOLUTE COUNT 9.33 K/ L 1.80-8.00 H (BEAKER) (test code = 670) LYMPHOCYTES ABSOLUTE COUNT 1.54 K/ L 1.48-4.50 (BEAKER) (test code = 414) MONOCYTES ABSOLUTE COUNT (BEAKER) 1.73 K/ L 0.00-1.30 H (test code = 415) EOSINOPHILS ABSOLUTE COUNT 0.11 K/ L 0.00-0.50 (BEAKER) (test code = 416) BASOPHILS ABSOLUTE COUNT (BEAKER) 0.03 K/ L 0.00-0.20 (test code = 417) IMMATURE GRANULOCYTES-RELATIVE 1 % 0-0 H PERCENT (BEAKER) (test code = 2801) BASIC METABOLIC [id number] 06:25:00 Test Item Value Reference Range Interpretation Comments SODIUM (BEAKER) 142 meq/L 135-148 (test code = 381) POTASSIUM (BEAKER) 3.3 meq/L 3.6-5.5 L (test code = 379) CHLORIDE (BEAKER) 112 meq/L 98-106 H (test code = 382) CO2 (BEAKER) (test 20 meq/L 20-29 code = 355) BLOOD UREA NITROGEN 8 mg/dL 10-26 L (BEAKER) (test code = 354) CREATININE (BEAKER) 0.77 mg/dL 0.50-1.20 (test code = 358) GLUCOSE RANDOM 116 mg/dL 70-110 H (BEAKER) (test code = 652) CALCIUM (BEAKER) 7.7 mg/dL 8.5-10.5 L (test code = 697) EGFR (BEAKER) (test 74 mL/min/1.73 ESTIMA BEENA GFR IS code = 1092) sq m NOT ACCURATE CREATININE CLEARANCE IN PREDICTING GLOMERULAR FILTRATION RATE . ESTIMATED GFR I S NOT APPLICABLE FOR DIALYSIS PATIEN TS. CBC W/PLT COUNT & AUTO [id number] 06:08:00 Test Item Value Reference Range Interpretation Comments WHITE BLOOD CELL COUNT (BEAKER) 11.8 K/ L 4.0-10.0 H (test code = 775) RED BLOOD CELL COUNT (BEAKER) 3.66 M/ L 4.00-5.00 L (test code = 761) HEMOGLOBIN (BEAKER) (test code = 11.0 GM/DL 12.0-15.5 L 410) HEMATOCRIT (BEAKER) (test code = 34.2 % 36.0-46.0 L 411) MEAN CORPUSCULAR VOLUME (BEAKER) 93.4 fL 82.0-99.0 (test code = 753) MEAN CORPUSCULAR HEMOGLOBIN 30.1 pg 27.0-33.0 (BEAKER) (test code = 751) MEAN CORPUSCULAR HEMOGLOBIN CONC 32.2 GM/DL 32.0-36.0 (BEAKER) (test code = 752) RED CELL DISTRIBUTION WIDTH 13.3 % 12.0-15.0 (BEAKER) (test code = 412) PLATELET COUNT (BEAKER) (test 207 K/CU MM 150-430 code = 756) MEAN PLATELET VOLUME (BEAKER) 9.7 fL 6.0-11.5 (test code = 754) NUCLEATED RED BLOOD CELLS 0 /100 WBC 0-0 (BEAKER) (test code = 413) NEUTROPHILS RELATIVE PERCENT 65 % (BEAKER) (test code = 429) LYMPHOCYTES RELATIVE PERCENT 16 % (BEAKER) (test code = 430) MONOCYTES RELATIVE PERCENT 15 % (BEAKER) (test code = 431) EOSINOPHILS RELATIVE PERCENT 2 % (BEAKER) (test code = 432) BASOPHILS RELATIVE PERCENT 0 % (BEAKER) (test code = 437) NEUTROPHILS ABSOLUTE COUNT 7.63 K/ L 1.80-8.00 (BEAKER) (test code = 670) LYMPHOCYTES ABSOLUTE COUNT 1.93 K/ L 1.48-4.50 (BEAKER) (test code = 414) MONOCYTES ABSOLUTE COUNT (BEAKER) 1.74 K/ L 0.00-1.30 H (test code = 415) EOSINOPHILS ABSOLUTE COUNT 0.23 K/ L 0.00-0.50 (BEAKER) (test code = 416) BASOPHILS ABSOLUTE COUNT (BEAKER) 0.04 K/ L 0.00-0.20 (test code = 417) IMMATURE GRANULOCYTES-RELATIVE 2 % 0-0 H PERCENT (BEAKER) (test code = 2801) BLOOD [id number] 01:01:00 Test Item Value Reference Range Interpretation Comments CULTURE (BEAKER) (test No growth in 5 days code = 1095) BLOOD [id number] 22:01:00 Test Item Value Reference Range Interpretation Comments CULTURE (BEAKER) (test No growth in 5 days code = 1095) COMPREHENSIVE METABOLIC [id number] 05:45:00 Test Item Value Reference Range Interpretation Comments TOTAL PROTEIN 5.8 gm/dL 6.0-8.5 L (BEAKER) (test code = 770) ALBUMIN (BEAKER) 3.2 g/dL 3.5-5.0 L (test code = 1145) ALKALINE PHOSPHATASE 63 U/L 30-115 (BEAKER) (test code = 346) BILIRUBIN TOTAL 0.3 mg/dL 0.1-1.2 (BEAKER) (test code = 377) SODIUM (BEAKER) (test 142 meq/L 135-148 code = 381) POTASSIUM (BEAKER) 3.8 meq/L 3.6-5.5 (test code = 379) CHLORIDE (BEAKER) 113 meq/L 98-106 H (test code = 382) CO2 (BEAKER) (test 20 meq/L 20-29 code = 355) BLOOD UREA NITROGEN 8 mg/dL 10-26 L (BEAKER) (test code = 354) CREATININE (BEAKER) 0.71 mg/dL 0.50-1.20 (test code = 358) GLUCOSE RANDOM 101 mg/dL 70-110 (BEAKER) (test code = 652) CALCIUM (BEAKER) 7.9 mg/dL 8.5-10.5 L (test code = 697) AST (SGOT) (BEAKER) 13 U/L 5-40 (test code = 353) ALT (SGPT) (BEAKER) 8 U/L 5-50 (test code = 347) EGFR (BEAKER) (test 82 mL/min/1.73 ESTIMA BEENA GFR IS code = 1092) sq m NOT ACCURATE CREATININE CLEARANCE IN PREDICTING GLOMERULAR FILTRATION RATE . ESTIMATED GFR I S NOT APPLICABLE FOR DIALYSIS PATIEN TS. CBC W/PLT COUNT & AUTO [id number] 05:23:00 Test Item Value Reference Range Interpretation Comments WHITE BLOOD CELL COUNT (BEAKER) 11.3 K/ L 4.0-10.0 H (test code = 775) RED BLOOD CELL COUNT (BEAKER) 3.50 M/ L 4.00-5.00 L (test code = 761) HEMOGLOBIN (BEAKER) (test code = 10.8 GM/DL 12.0-15.5 L 410) HEMATOCRIT (BEAKER) (test code = 32.7 % 36.0-46.0 L 411) MEAN CORPUSCULAR VOLUME (BEAKER) 93.4 fL 82.0-99.0 (test code = 753) MEAN CORPUSCULAR HEMOGLOBIN 30.9 pg 27.0-33.0 (BEAKER) (test code = 751) MEAN CORPUSCULAR HEMOGLOBIN CONC 33.0 GM/DL 32.0-36.0 (BEAKER) (test code = 752) RED CELL DISTRIBUTION WIDTH 13.3 % 12.0-15.0 (BEAKER) (test code = 412) PLATELET COUNT (BEAKER) (test 189 K/CU MM 150-430 code = 756) MEAN PLATELET VOLUME (BEAKER) 9.9 fL 6.0-11.5 (test code = 754) NUCLEATED RED BLOOD CELLS 0 /100 WBC 0-0 (BEAKER) (test code = 413) NEUTROPHILS RELATIVE PERCENT 68 % (BEAKER) (test code = 429) LYMPHOCYTES RELATIVE PERCENT 13 % (BEAKER) (test code = 430) MONOCYTES RELATIVE PERCENT 16 % (BEAKER) (test code = 431) EOSINOPHILS RELATIVE PERCENT 2 % (BEAKER) (test code = 432) BASOPHILS RELATIVE PERCENT 0 % (BEAKER) (test code = 437) NEUTROPHILS ABSOLUTE COUNT 7.72 K/ L 1.80-8.00 (BEAKER) (test code = 670) LYMPHOCYTES ABSOLUTE COUNT 1.42 K/ L 1.48-4.50 L (BEAKER) (test code = 414) MONOCYTES ABSOLUTE COUNT (BEAKER) 1.83 K/ L 0.00-1.30 H (test code = 415) EOSINOPHILS ABSOLUTE COUNT 0.18 K/ L 0.00-0.50 (BEAKER) (test code = 416) BASOPHILS ABSOLUTE COUNT (BEAKER) 0.03 K/ L 0.00-0.20 (test code = 417) IMMATURE GRANULOCYTES-RELATIVE 1 % 0-0 H PERCENT (BEAKER) (test code = 2801) COMPREHENSIVE METABOLIC [id number] 05:12:00 Test Item Value Reference Range Interpretation Comments TOTAL PROTEIN 5.4 gm/dL 6.0-8.5 L (BEAKER) (test code = 770) ALBUMIN (BEAKER) 3.1 g/dL 3.5-5.0 L (test code = 1145) ALKALINE PHOSPHATASE 64 U/L 30-115 (BEAKER) (test code = 346) BILIRUBIN TOTAL 0.3 mg/dL 0.1-1.2 (BEAKER) (test code = 377) SODIUM (BEAKER) (test 142 meq/L 135-148 code = 381) POTASSIUM (BEAKER) 3.4 meq/L 3.6-5.5 L (test code = 379) CHLORIDE (BEAKER) 115 meq/L 98-106 H (test code = 382) CO2 (BEAKER) (test 18 meq/L 20-29 L code = 355) BLOOD UREA NITROGEN 10 mg/dL 10-26 (BEAKER) (test code = 354) CREATININE (BEAKER) 0.75 mg/dL 0.50-1.20 (test code = 358) GLUCOSE RANDOM 100 mg/dL 70-110 (BEAKER) (test code = 652) CALCIUM (BEAKER) 7.7 mg/dL 8.5-10.5 L (test code = 697) AST (SGOT) (BEAKER) 14 U/L 5-40 (test code = 353) ALT (SGPT) (BEAKER) 9 U/L 5-50 (test code = 347) EGFR (BEAKER) (test 77 mL/min/1.73 ESTIMA BEENA GFR IS code = 1092) sq m NOT ACCURATE CREATININE CLEARANCE IN PREDICTING GLOMERULAR FILTRATION RATE . ESTIMATED GFR I S NOT APPLICABLE FOR DIALYSIS PATIEN TS. CBC W/PLT COUNT & AUTO [id number] 04:55:00 Test Item Value Reference Range Interpretation Comments WHITE BLOOD CELL COUNT (BEAKER) 9.2 K/ L 4.0-10.0 (test code = 775) RED BLOOD CELL COUNT (BEAKER) 3.32 M/ L 4.00-5.00 L (test code = 761) HEMOGLOBIN (BEAKER) (test code = 10.0 GM/DL 12.0-15.5 L 410) HEMATOCRIT (BEAKER) (test code = 31.1 % 36.0-46.0 L 411) MEAN CORPUSCULAR VOLUME (BEAKER) 93.7 fL 82.0-99.0 (test code = 753) MEAN CORPUSCULAR HEMOGLOBIN 30.1 pg 27.0-33.0 (BEAKER) (test code = 751) MEAN CORPUSCULAR HEMOGLOBIN CONC 32.2 GM/DL 32.0-36.0 (BEAKER) (test code = 752) RED CELL DISTRIBUTION WIDTH 13.3 % 12.0-15.0 (BEAKER) (test code = 412) PLATELET COUNT (BEAKER) (test 181 K/CU MM 150-430 code = 756) MEAN PLATELET VOLUME (BEAKER) 9.8 fL 6.0-11.5 (test code = 754) NUCLEATED RED BLOOD CELLS 0 /100 WBC 0-0 (BEAKER) (test code = 413) NEUTROPHILS RELATIVE PERCENT 61 % (BEAKER) (test code = 429) LYMPHOCYTES RELATIVE PERCENT 16 % (BEAKER) (test code = 430) MONOCYTES RELATIVE PERCENT 19 % (BEAKER) (test code = 431) EOSINOPHILS RELATIVE PERCENT 3 % (BEAKER) (test code = 432) BASOPHILS RELATIVE PERCENT 0 % (BEAKER) (test code = 437) NEUTROPHILS ABSOLUTE COUNT 5.60 K/ L 1.80-8.00 (BEAKER) (test code = 670) LYMPHOCYTES ABSOLUTE COUNT 1.49 K/ L 1.48-4.50 (BEAKER) (test code = 414) MONOCYTES ABSOLUTE COUNT (BEAKER) 1.72 K/ L 0.00-1.30 H (test code = 415) EOSINOPHILS ABSOLUTE COUNT 0.24 K/ L 0.00-0.50 (BEAKER) (test code = 416) BASOPHILS ABSOLUTE COUNT (BEAKER) 0.03 K/ L 0.00-0.20 (test code = 417) IMMATURE GRANULOCYTES-RELATIVE 1 % 0-0 H PERCENT (BEAKER) (test code = 2801) CT, [id number] 15:08:00Addendum BeginsREPORT STATUS:A Notable nonvascular findings are:Prior gastrojejunostomy without evidence of complication.Prior cholecystectomy without evidence of complication.Constipation. Signed: Gagandeep Narvaez MDReport Verified Date/Time: 02/22/2019 15:08:08 Reading Location: [facility] Diagnostic Imaging Reading Room - [place] [id number] abdomen and pelvis with contrast History: Abdominal pain, fever, suspected abscess Comparison:CT abdomen and pelvis 10/31/2018 Technique: serial axial imaging was performed following up to 100cc of non ionic iodinated intravenous contrast as per departmental protocol. Multiplanar images are reconstructed and reviewed when indicated. This CT examination is performed using one or more of the fol lowing dose reduction techniques: Automated exposure control, adjustment of the mA and /or kV according to patient size, and/or use of iterative reconstruction technique. Findings:Mild pancreatic ductal dilation, without mass. No significant change from prior study. The pancreas and spleen are otherwise unremarkable. The patient is status post cholecystectomy. Unchanged prominent common bile duct and mild central intrahepatic biliary dilation. No visualized distal obstruction. Pneumobilia is suggestive of prior sphincterotomy. These findings are unchanged from previous study. The liver is otherwise unremarkable. Tiny simple appearing cyst at the inferior pole the right kidney, unchanged from previous examination. Otherwise, unremarkable appearance of the adrenal glands, kidneys, ureters, and bladder. . Previous hysterectomy. No small or large bowel obstruction. No apparent bowel wall thickening. No findings to indicate acute appendicitis. Moderate colonic stool retention. No free fluid or lymphadenopathy. No abdominal aortic aneurysm. Intact infrarenal IVC filter. No aggressive osseous lesion. Impression: 1. No acute findings in the abdomen or pelvis. Specifically, there is no evidence of abscess formation.2. Moderate colonic stool retention, suggesting constipation.3. Status post cholecystectomy, with unchanged biliary dilation and pneumobilia, suggesting prior sphincterotomy.No visualized distal obstructive lesion. Signed: Pablito Damian MDReport Verified Date/Time: 02/22/2019 08:29:04 Reading Location: [facility] B1 [id number] [facility] Consult Reading Room C. DIFFICILE GDH [id number] 13:05:00 Test Item Value Reference Range Interpretation Comments CDT TOXIN (test code Negative Negative = [id number]) CDT GDH ANTIGEN (test Negative Negative No ind ication of code = [id number]) Clostridi um difficile infection and n o colonization. Discontinue ent arben isolation and t herapy. Testing performed by [employer] Rapid Cassette Assay. For GDH, published sensitivity of the assay is 98.7% compared to cytotoxicity testing. For Toxin AB, published sensitivity is 87.8% and specificity 99.4% compared to cytotoxicity testing.Verification of kit performance was done by the [facility] prior to clinical use.CT, CTA, [id number] 09:58:00FINAL REPORT CTA Aorta - Chest: 02/21/2019 7:22 PM. Comparison: None available. History: 68 years old Female with prior thoracic aortic aneurysm status post endovascular stent graft. Evaluated for interval change. Indication: There is clinical need to define thoracic aortic anatomy. Technique: Multi-detector CT technology was employed (Fragegg VCT scanner). Spiral acquisition before and during intravenous contrast administration. Images were obtained before and during the dynamic passage of intravenous contrast material. Multi-planar 3-D volume-rendering reconstruction was performed using an independent workstation interactively by the interpreting physician as wellas the 3-D specialist for optimal visualization of the thoracic aorta as well as its proximal branches. Please refer to the contrast sheet scanned in the EPIC system for the amount and route of contrast given. This exam was performed according to our departmental dose-optimization programme, which includes automated exposure control, adjustment of the mA and/or kV according to patient size and/or useof iterative reconstruction technique. Dose modulation, iterative reconstruction, and/or weight based adjustment of the mA/kV was utilized to reduce the radiation dose to as low as reasonably achievable. RESULT:Potential study limitations: None. CHEST: The visualized thyroid gland appears unremarkable. The chest wall is remarkable only for Port-A-Cath in the left upper chest wall with the catheter tip ending in the right atrium. The mediastinum is remarkable only for venous anastomotic plexus near the left upper mediastinum. There are small mediastinal lymph nodes, however not pathologic by size criteria. The pericardium appears unremarkable. The pulmonary arteries are normal. The lung windows: Unremarkable, except for bibasilar atelectasis. The central airways are patent. There is no abnormal pulmonary parenchymal mass, infiltrate, or pleural effusion. The cardiac chambers have normal atrioventricular and ventriculoarterial concordance, and systemic and pulmonary venous return. The cardiac chamber sizes are normal. The coronary arteries have normal origins and courses. There are mild coronary calcifications identified, though this study was not optimized for coronary artery evaluation. VASCULAR WITH ADVANCED 3-D OFFLINE POST-PROCESSING:The aortic valve is trileaflet. The leafletsare free from calcifications. The aortic root is symmetric and normal in dimension, and is free from calcifications. The sinotubular junction is preserved. The ascending thoracic aorta is normal in course, caliber and contour. 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 The right common carotid artery was anastomosedwith a tube graft to both (right and left) the subclavian arteries and the left common carotid artery, which are widely patent with only mild stenosis near the anastomosis to the right and left subclavian artery. The [place] right subclavian artery has moderate stenosis before the anastomosis with tubegraft. The [place] left subclavian is occluded at its ostium and there is evidence of prior graft, which is also occluded. There is an endovascular stent graft, commencing immediately after the right common carotid artery to the mid descending thoracic aorta. The endo stent is well-positioned. The proximal margin and the distal margin are well opposed. There is no evidence of aneurysm or leak noted. The remaining descending thoracic aorta is normal in course, caliber, and contour. There is no acuteaortic pathology, such as dissection, intramural hematoma, or contained rupture. Photography Teacher dimensions of the thoracic aorta are as follows:*3.3 cm at the sinuses of Valsalva (measured [id number])*3.5 cm in the mid-ascending aorta*3.4 cm at the distal ascending aorta*2.7 cm at the mid-transverse arch*3.5 cm at the proximal descending thoracic aorta*2.5 cm at the diaphragmatic hiatus ABDOMEN:The limited images of the upper abdomen reveal no abnormalities of the imaged organs. IMPRESSION: 1. 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 The right common carotid artery was anastomosed with a tube graft to both (right and left) the subclavian arteries and the left common carotid artery, which are widely patent with only mild stenosis near the anastomosis to the right and left subclavian artery. The [place] right subclavian artery has moderate stenosis before the anastomosis with tube graft. The [place] left subclavian is occluded at its ostium and there is evidence of prior graft, which is also occluded. 2. There is an endovascular stent graft, commencing immediately after the right common carotid artery to the mid descending thoracic aorta. The endo stent is well-positioned. The proximal margin and the distal margin are well opposed. There is no evidence of aneurysm or leak noted. The remaining descending thoracic aorta is normal in course, caliber, and contour. There is no acute aortic pathology, such as dissection, intramural hematoma, or contained rupture. Quantitative dimension of the aorta are as described above. An addendum will be dictated regarding the non-vascular findings by the Lighting Fixture Installer Radiologist. Signed: Chucho Nance MDReport Verified Date/Time: 02/22/2019 09:58:07 Reading Location: [place] [address] Cardiology MRI COMPREHENSIVE METABOLIC [id number] 05:27:00 Test Item Value Reference Range Interpretation Comments TOTAL PROTEIN 5.8 gm/dL 6.0-8.5 L (BEAKER) (test code = 770) ALBUMIN (BEAKER) 3.3 g/dL 3.5-5.0 L (test code = 1145) ALKALINE PHOSPHATASE 69 U/L 30-115 (BEAKER) (test code = 346) BILIRUBIN TOTAL 0.4 mg/dL 0.1-1.2 (BEAKER) (test code = 377) SODIUM (BEAKER) (test 139 meq/L 135-148 code = 381) POTASSIUM (BEAKER) 3.2 meq/L 3.6-5.5 L (test code = 379) CHLORIDE (BEAKER) 112 meq/L 98-106 H (test code = 382) CO2 (BEAKER) (test 16 meq/L 20-29 L code = 355) BLOOD UREA NITROGEN 9 mg/dL 10-26 L (BEAKER) (test code = 354) CREATININE (BEAKER) 0.78 mg/dL 0.50-1.20 (test code = 358) GLUCOSE RANDOM 111 mg/dL 70-110 H (BEAKER) (test code = 652) CALCIUM (BEAKER) 8.0 mg/dL 8.5-10.5 L (test code = 697) AST (SGOT) (BEAKER) 20 U/L 5-40 (test code = 353) ALT (SGPT) (BEAKER) 12 U/L 5-50 (test code = 347) EGFR (BEAKER) (test 73 mL/min/1.73 ESTIMA BEENA GFR IS code = 1092) sq m NOT ACCURATE CREATININE CLEARANCE IN PREDICTING GLOMERULAR FILTRATION RATE . ESTIMATED GFR I S NOT APPLICABLE FOR DIALYSIS PATIEN TS. CBC W/PLT COUNT & AUTO [id number] 04:58:00 Test Item Value Reference Range Interpretation Comments WHITE BLOOD CELL COUNT (BEAKER) 19.4 K/ L 4.0-10.0 H (test code = 775) RED BLOOD CELL COUNT (BEAKER) 3.47 M/ L 4.00-5.00 L (test code = 761) HEMOGLOBIN (BEAKER) (test code = 10.5 GM/DL 12.0-15.5 L 410) HEMATOCRIT (BEAKER) (test code = 32.2 % 36.0-46.0 L 411) MEAN CORPUSCULAR VOLUME (BEAKER) 92.8 fL 82.0-99.0 (test code = 753) MEAN CORPUSCULAR HEMOGLOBIN 30.3 pg 27.0-33.0 (BEAKER) (test code = 751) MEAN CORPUSCULAR HEMOGLOBIN CONC 32.6 GM/DL 32.0-36.0 (BEAKER) (test code = 752) RED CELL DISTRIBUTION WIDTH 13.3 % 12.0-15.0 (BEAKER) (test code = 412) PLATELET COUNT (BEAKER) (test 179 K/CU MM 150-430 code = 756) MEAN PLATELET VOLUME (BEAKER) 9.6 fL 6.0-11.5 (test code = 754) NUCLEATED RED BLOOD CELLS 0 /100 WBC 0-0 (BEAKER) (test code = 413) NEUTROPHILS RELATIVE PERCENT 79 % (BEAKER) (test code = 429) LYMPHOCYTES RELATIVE PERCENT 4 % (BEAKER) (test code = 430) MONOCYTES RELATIVE PERCENT 16 % (BEAKER) (test code = 431) EOSINOPHILS RELATIVE PERCENT 1 % (BEAKER) (test code = 432) BASOPHILS RELATIVE PERCENT 0 % (BEAKER) (test code = 437) NEUTROPHILS ABSOLUTE COUNT 15.31 K/ L 1.80-8.00 H (BEAKER) (test code = 670) LYMPHOCYTES ABSOLUTE COUNT 0.71 K/ L 1.48-4.50 L (BEAKER) (test code = 414) MONOCYTES ABSOLUTE COUNT (BEAKER) 3.11 K/ L 0.00-1.30 H (test code = 415) EOSINOPHILS ABSOLUTE COUNT 0.09 K/ L 0.00-0.50 (BEAKER) (test code = 416) BASOPHILS ABSOLUTE COUNT (BEAKER) 0.04 K/ L 0.00-0.20 (test code = 417) IMMATURE GRANULOCYTES-RELATIVE 1 % 0-0 H PERCENT (BEAKER) (test code = 2801) OCCULT BLOOD, [id number] 21:57:00 Test Item Value Reference Range Interpretation Comments FECAL OCCULT BLOOD (BEAKER) (test Positive Negative A code = 618) URINALYSIS W/ REFLEX URINE [id number] 11:22:00 Test Item Value Reference Range Interpretation Comments COLOR (BEAKER) (test code = 470) Yellow CLARITY (BEAKER) (test code = 469) Clear SPECIFIC GRAVITY UA (BEAKER) (test 1.010 1.001-1.035 code = 468) PH UA (BEAKER) (test code = 467) 6.0 5.0-8.0 PROTEIN UA (BEAKER) (test code = Negative Negative 464) GLUCOSE UA (BEAKER) (test code = Negative Negative 365) KETONES UA (BEAKER) (test code = Negative Negative 371) BILIRUBIN UA (BEAKER) (test code = Negative Negative 462) BLOOD UA (BEAKER) (test code = Negative Negative 461) NITRITE UA (BEAKER) (test code = Negative Negative 465) LEUKOCYTE ESTERASE UA (BEAKER) Negative Negative (test code = 466) UROBILINOGEN UA (BEAKER) (test 0.2 mg/dL 0.2-1.0 code = 463) BACTERIA (BEAKER) (test code = Occasional 517) RBC UA-MANUAL (BEAKER) (test code <5 /HPF = 1659) WBC UA-MANUAL (BEAKER) (test code <5 /HPF = 1661) SQUAMOUS EPITHELIAL MANUAL 5-10 /HPF (BEAKER) (test code = 1663) SOURCE(BEAKER) (test code = 7825) BASIC METABOLIC [id number] 07:08:00 Test Item Value Reference Range Interpretation Comments SODIUM (BEAKER) 142 meq/L 135-148 (test code = 381) POTASSIUM (BEAKER) 3.6 meq/L 3.6-5.5 (test code = 379) CHLORIDE (BEAKER) 114 meq/L 98-106 H (test code = 382) CO2 (BEAKER) (test 19 meq/L 20-29 L code = 355) BLOOD UREA NITROGEN 13 mg/dL 10-26 (BEAKER) (test code = 354) CREATININE (BEAKER) 0.73 mg/dL 0.50-1.20 (test code = 358) GLUCOSE RANDOM 90 mg/dL 70-110 (BEAKER) (test code = 652) CALCIUM (BEAKER) 8.2 mg/dL 8.5-10.5 L (test code = 697) EGFR (BEAKER) (test 79 mL/min/1.73 ESTIMA BEENA GFR IS code = 1092) sq m NOT ACCURATE CREATININE CLEARANCE IN PREDICTING GLOMERULAR FILTRATION RATE . ESTIMATED GFR I S NOT APPLICABLE FOR DIALYSIS PATIEN TS. HEPATIC FUNCTION [id number] 07:05:00 Test Item Value Reference Range Interpretation Comments TOTAL PROTEIN (BEAKER) (test code = 5.9 gm/dL 6.0-8.5 L 770) ALBUMIN (BEAKER) (test code = 1145) 3.4 g/dL 3.5-5.0 L BILIRUBIN TOTAL (BEAKER) (test code 0.4 mg/dL 0.1-1.2 = 377) BILIRUBIN DIRECT (BEAKER) (test 0.2 mg/dL 0.0-0.4 code = 706) ALKALINE PHOSPHATASE (BEAKER) (test 68 U/L 30-115 code = 346) AST (SGOT) (BEAKER) (test code = 13 U/L 5-40 353) ALT (SGPT) (BEAKER) (test code = 10 U/L 5-50 347) LIPID [id number] 07:04:00 Test Item Value Reference Range Interpretation Comments TRIGLYCERIDES (BEAKER) (test code = 71 mg/dL 540) CHOLESTEROL (BEAKER) (test code = 103 mg/dL 631) HDL CHOLESTEROL (BEAKER) (test code 40 mg/dL = 976) LDL CHOLESTEROL CALCULATED (BEAKER) 49 mg/dL (test code = 633) Triglyceride Reference Range: Low Risk <150 Borderline 150-199 High Risk 200-499 Very High Risk >=500Cholesterol Reference Range: Low Risk <200 Borderline 200-239 High Risk >240HDL Cholesterol Reference Range: Low Risk >=60 High Risk <40LDL Cholesterol Reference Range: Optimal <100 Near Optimal 100-129 Borderline 130-159 High 160-189 Very High >=190HEMOGLOBIN [id number] 07:00:00 Test Item Value Reference Range Interpretation Comments HEMOGLOBIN A1C (BEAKER) (test code = 5.6 % 4.3-6.1 368) [id number] 06:56:00 Test Item Value Reference Range Interpretation Comments MAGNESIUM (BEAKER) (test code = 1.5 mg/dL 1.5-3.0 627) CBC W/PLT COUNT & AUTO [id number] 06:43:00 Test Item Value Reference Range Interpretation Comments WHITE BLOOD CELL COUNT (BEAKER) 8.8 K/ L 4.0-10.0 (test code = 775) RED BLOOD CELL COUNT (BEAKER) 3.51 M/ L 4.00-5.00 L (test code = 761) HEMOGLOBIN (BEAKER) (test code = 10.9 GM/DL 12.0-15.5 L 410) HEMATOCRIT (BEAKER) (test code = 33.0 % 36.0-46.0 L 411) MEAN CORPUSCULAR VOLUME (BEAKER) 94.0 fL 82.0-99.0 (test code = 753) MEAN CORPUSCULAR HEMOGLOBIN 31.1 pg 27.0-33.0 (BEAKER) (test code = 751) MEAN CORPUSCULAR HEMOGLOBIN CONC 33.0 GM/DL 32.0-36.0 (BEAKER) (test code = 752) RED CELL DISTRIBUTION WIDTH 13.4 % 12.0-15.0 (BEAKER) (test code = 412) PLATELET COUNT (BEAKER) (test 178 K/CU MM 150-430 code = 756) MEAN PLATELET VOLUME (BEAKER) 10.7 fL 6.0-11.5 (test code = 754) NUCLEATED RED BLOOD CELLS 0 /100 WBC 0-0 (BEAKER) (test code = 413) NEUTROPHILS RELATIVE PERCENT 57 % (BEAKER) (test code = 429) LYMPHOCYTES RELATIVE PERCENT 20 % (BEAKER) (test code = 430) MONOCYTES RELATIVE PERCENT 18 % (BEAKER) (test code = 431) EOSINOPHILS RELATIVE PERCENT 3 % (BEAKER) (test code = 432) BASOPHILS RELATIVE PERCENT 1 % (BEAKER) (test code = 437) NEUTROPHILS ABSOLUTE COUNT 4.97 K/ L 1.80-8.00 (BEAKER) (test code = 670) LYMPHOCYTES ABSOLUTE COUNT 1.74 K/ L 1.48-4.50 (BEAKER) (test code = 414) MONOCYTES ABSOLUTE COUNT (BEAKER) 1.60 K/ L 0.00-1.30 H (test code = 415) EOSINOPHILS ABSOLUTE COUNT 0.29 K/ L 0.00-0.50 (BEAKER) (test code = 416) BASOPHILS ABSOLUTE COUNT (BEAKER) 0.05 K/ L 0.00-0.20 (test code = 417) IMMATURE GRANULOCYTES-RELATIVE 1 % 0-0 H PERCENT (BEAKER) (test code = 2801) U/S, ABDOMINAL, [id number] 21:22:00Abdomen limited area? Add comment if clarification is needed.->Right upper quadrantReason for exam:- >FEVERmaximum temp - 102 F started mondayReason for exam:->mostly the head and neckReason for exam:->EMESISpast week Reason for exam:- >NAUSEApast weekFINAL REPORT EXAMINATION: RIGHT UPPER QUADRANT ABDOMINAL ULTRASOUND CLINICAL INDICATION: Fever, nausea, emesis FINDINGS: Compared with abdominal CT 10/31/2018, ultrasound 08/17/2004 The liver measures 15 cm in length and is relatively homogeneous. As before, the gallbladder is absent. Mild intrahepatic biliary dilatation is redemonstrated. The common bile duct is also dilated measuring up to 1.1 cm. Pancreas was partially obscured by overlying bowel gas. The right kidney measures 10 x 3 x 4 cm. The right kidney is associated with a small 9 mm cyst. Survey images of the visualized segments of the main portal vein, IVC and hepatic veins were unremarkable. The abdominal aorta demonstrates calcific atherosclerosis. No significant intra-abdominal free fluid or right-sided pleural effusion. IMPRESSION: Biliary dilatation, similar to previous and possibly reflecting increased capacitance of the biliary system following cholecystectomy. However, recommend clinical correlation with patient's liver function studies and clinical presentation to exclude biliary obstruction. Pancreas partially secured by overlying bowel gas. Small right renal cyst. Signed: Cory Daniels MDReport Verified Date/Time: 02/20/2019 21:22:49 Reading Location: [address] Reading Room TSH/FREE T4 IF [id number] 21:00:00 Test Item Value Reference Range Interpretation Comments THYROID STIMULATING HORMONE 3.64 uIU/mL 0.35-5.50 (BEAKER) (test code = 772) HEPATIC FUNCTION [id number] 20:40:00 Test Item Value Reference Range Interpretation Comments TOTAL PROTEIN (BEAKER) (test code = 6.5 gm/dL 6.0-8.5 770) ALBUMIN (BEAKER) (test code = 1145) 3.6 g/dL 3.5-5.0 BILIRUBIN TOTAL (BEAKER) (test code 0.3 mg/dL 0.1-1.2 = 377) BILIRUBIN DIRECT (BEAKER) (test 0.2 mg/dL 0.0-0.4 code = 706) ALKALINE PHOSPHATASE (BEAKER) (test 72 U/L 30-115 code = 346) AST (SGOT) (BEAKER) (test code = 13 U/L 5-40 353) ALT (SGPT) (BEAKER) (test code = 12 U/L 5-50 347) [id number] 20:40:00 Test Item Value Reference Range Interpretation Comments LIPASE (BEAKER) (test code = 749) 42 U/L 6-51 BASIC METABOLIC [id number] 20:40:00 Test Item Value Reference Range Interpretation Comments SODIUM (BEAKER) 140 meq/L 135-148 (test code = 381) POTASSIUM (BEAKER) 3.6 meq/L 3.6-5.5 (test code = 379) CHLORIDE (BEAKER) 112 meq/L 98-106 H (test code = 382) CO2 (BEAKER) (test 19 meq/L 20-29 L code = 355) BLOOD UREA NITROGEN 17 mg/dL 10-26 (BEAKER) (test code = 354) CREATININE (BEAKER) 0.78 mg/dL 0.50-1.20 (test code = 358) GLUCOSE RANDOM 99 mg/dL 70-110 (BEAKER) (test code = 652) CALCIUM (BEAKER) 8.5 mg/dL 8.5-10.5 (test code = 697) EGFR (BEAKER) (test 73 mL/min/1.73 ESTIMA BEENA GFR IS code = 1092) sq m NOT ACCURATE CREATININE CLEARANCE IN PREDICTING GLOMERULAR FILTRATION RATE . ESTIMATED GFR I S NOT APPLICABLE FOR DIALYSIS PATIEN TS. CBC W/PLT COUNT & AUTO [id number] 20:20:00 Test Item Value Reference Range Interpretation Comments WHITE BLOOD CELL COUNT (BEAKER) 10.2 K/ L 4.0-10.0 H (test code = 775) RED BLOOD CELL COUNT (BEAKER) 3.65 M/ L 4.00-5.00 L (test code = 761) HEMOGLOBIN (BEAKER) (test code = 11.1 GM/DL 12.0-15.5 L 410) HEMATOCRIT (BEAKER) (test code = 33.9 % 36.0-46.0 L 411) MEAN CORPUSCULAR VOLUME (BEAKER) 92.9 fL 82.0-99.0 (test code = 753) MEAN CORPUSCULAR HEMOGLOBIN 30.4 pg 27.0-33.0 (BEAKER) (test code = 751) MEAN CORPUSCULAR HEMOGLOBIN CONC 32.7 GM/DL 32.0-36.0 (BEAKER) (test code = 752) RED CELL DISTRIBUTION WIDTH 13.3 % 12.0-15.0 (BEAKER) (test code = 412) PLATELET COUNT (BEAKER) (test 199 K/CU MM 150-430 code = 756) MEAN PLATELET VOLUME (BEAKER) 9.6 fL 6.0-11.5 (test code = 754) NUCLEATED RED BLOOD CELLS 0 /100 WBC 0-0 (BEAKER) (test code = 413) NEUTROPHILS RELATIVE PERCENT 67 % (BEAKER) (test code = 429) LYMPHOCYTES RELATIVE PERCENT 15 % (BEAKER) (test code = 430) MONOCYTES RELATIVE PERCENT 15 % (BEAKER) (test code = 431) EOSINOPHILS RELATIVE PERCENT 2 % (BEAKER) (test code = 432) BASOPHILS RELATIVE PERCENT 1 % (BEAKER) (test code = 437) NEUTROPHILS ABSOLUTE COUNT 6.90 K/ L 1.80-8.00 (BEAKER) (test code = 670) LYMPHOCYTES ABSOLUTE COUNT 1.48 K/ L 1.48-4.50 (BEAKER) (test code = 414) MONOCYTES ABSOLUTE COUNT (BEAKER) 1.53 K/ L 0.00-1.30 H (test code = 415) EOSINOPHILS ABSOLUTE COUNT 0.17 K/ L 0.00-0.50 (BEAKER) (test code = 416) BASOPHILS ABSOLUTE COUNT (BEAKER) 0.05 K/ L 0.00-0.20 (test code = 417) IMMATURE GRANULOCYTES-RELATIVE 1 % 0-0 H PERCENT (BEAKER) (test code = 2801) BASIC METABOLIC [id number] 06:16:00 Test Item Value Reference Range Interpretation Comments SODIUM (BEAKER) 142 meq/L 135-148 (test code = 381) POTASSIUM (BEAKER) 3.6 meq/L 3.6-5.5 (test code = 379) CHLORIDE (BEAKER) 111 meq/L 98-106 H (test code = 382) CO2 (BEAKER) (test 23 meq/L 20-29 code = 355) BLOOD UREA NITROGEN 8 mg/dL 10-26 L (BEAKER) (test code = 354) CREATININE (BEAKER) 0.71 mg/dL 0.50-1.20 (test code = 358) GLUCOSE RANDOM 96 mg/dL 70-110 (BEAKER) (test code = 652) CALCIUM (BEAKER) 7.9 mg/dL 8.5-10.5 L (test code = 697) EGFR (BEAKER) (test 82 mL/min/1.73 ESTIMA BEENA GFR IS code = 1092) sq m NOT ACCURATE CREATININE CLEARANCE IN PREDICTING GLOMERULAR FILTRATION RATE . ESTIMATED GFR I S NOT APPLICABLE FOR DIALYSIS PATIEN TS. CBC W/PLT COUNT & AUTO [id number] 05:57:00 Test Item Value Reference Range Interpretation Comments WHITE BLOOD CELL COUNT (BEAKER) 11.1 K/ L 4.0-10.0 H (test code = 775) RED BLOOD CELL COUNT (BEAKER) 2.98 M/ L 4.00-5.00 L (test code = 761) HEMOGLOBIN (BEAKER) (test code = 8.8 GM/DL 12.0-15.5 L 410) HEMATOCRIT (BEAKER) (test code = 28.1 % 36.0-46.0 L 411) MEAN CORPUSCULAR VOLUME (BEAKER) 94.3 fL 82.0-99.0 (test code = 753) MEAN CORPUSCULAR HEMOGLOBIN 29.5 pg 27.0-33.0 (BEAKER) (test code = 751) MEAN CORPUSCULAR HEMOGLOBIN CONC 31.3 GM/DL 32.0-36.0 L (BEAKER) (test code = 752) RED CELL DISTRIBUTION WIDTH 13.4 % 12.0-15.0 (BEAKER) (test code = 412) PLATELET COUNT (BEAKER) (test 195 K/CU MM 150-430 code = 756) MEAN PLATELET VOLUME (BEAKER) 10.1 fL 6.0-11.5 (test code = 754) NUCLEATED RED BLOOD CELLS 0 /100 WBC 0-0 (BEAKER) (test code = 413) NEUTROPHILS RELATIVE PERCENT 60 % (BEAKER) (test code = 429) LYMPHOCYTES RELATIVE PERCENT 16 % (BEAKER) (test code = 430) MONOCYTES RELATIVE PERCENT 17 % (BEAKER) (test code = 431) EOSINOPHILS RELATIVE PERCENT 6 % (BEAKER) (test code = 432) BASOPHILS RELATIVE PERCENT 1 % (BEAKER) (test code = 437) NEUTROPHILS ABSOLUTE COUNT 6.66 K/ L 1.80-8.00 (BEAKER) (test code = 670) LYMPHOCYTES ABSOLUTE COUNT 1.81 K/ L 1.48-4.50 (BEAKER) (test code = 414) MONOCYTES ABSOLUTE COUNT (BEAKER) 1.87 K/ L 0.00-1.30 H (test code = 415) EOSINOPHILS ABSOLUTE COUNT 0.62 K/ L 0.00-0.50 H (BEAKER) (test code = 416) BASOPHILS ABSOLUTE COUNT (BEAKER) 0.05 K/ L 0.00-0.20 (test code = 417) IMMATURE GRANULOCYTES-RELATIVE 1 % 0-0 H PERCENT (BEAKER) (test code = 2801) URINE [id number] 09:35:00 Test Item Value Reference Range Interpretation Comments CULTURE (BEAKER) (test ESCHERICHIA COLI A > 100,000 col/mL code = 1095) Escherichia col i Amikacin (test code = S 1) Ampicillin + Sulbactam R (test code = 6) Aztreonam (test code = S 32) Cefazolin (test code = S 9) Cefepime (test code = S 51) Cefoxitin (test code = S 68) Ceftazidime (test code S = 27) Ceftriaxone (test code S = 52) Ertapenem (test code = S 38) Gentamicin (test code S = 18) Levofloxacin (test R code = 22) Meropenem (test code = S 34) Nitrofurantoin (test S code = 23) Piperacillin + S Tazobactam (test code = 29) Tetracycline (test R code = 2) Tigecycline (test code S = 133) Tobramycin (test code S = 25) Trimethoprim + R Sulfamethoxazole (test code = 47) COMPREHENSIVE METABOLIC [id number] 07:08:00 Test Item Value Reference Range Interpretation Comments TOTAL PROTEIN 6.1 gm/dL 6.0-8.5 (BEAKER) (test code = 770) ALBUMIN (BEAKER) 3.4 g/dL 3.5-5.0 L (test code = 1145) ALKALINE PHOSPHATASE 58 U/L 30-115 (BEAKER) (test code = 346) BILIRUBIN TOTAL 0.3 mg/dL 0.1-1.2 (BEAKER) (test code = 377) SODIUM (BEAKER) (test 142 meq/L 135-148 code = 381) POTASSIUM (BEAKER) 3.2 meq/L 3.6-5.5 L (test code = 379) CHLORIDE (BEAKER) 110 meq/L 98-106 H (test code = 382) CO2 (BEAKER) (test 22 meq/L 20-29 code = 355) BLOOD UREA NITROGEN 13 mg/dL 10-26 (BEAKER) (test code = 354) CREATININE (BEAKER) 0.82 mg/dL 0.50-1.20 (test code = 358) GLUCOSE RANDOM 134 mg/dL 70-110 H (BEAKER) (test code = 652) CALCIUM (BEAKER) 8.2 mg/dL 8.5-10.5 L (test code = 697) AST (SGOT) (BEAKER) 14 U/L 5-40 (test code = 353) ALT (SGPT) (BEAKER) 8 U/L 5-50 (test code = 347) EGFR (BEAKER) (test 69 mL/min/1.73 ESTIMA BEENA GFR IS code = 1092) sq m NOT ACCURATE CREATININE CLEARANCE IN PREDICTING GLOMERULAR FILTRATION RATE . ESTIMATED GFR I S NOT APPLICABLE FOR DIALYSIS PATIEN TS. BASIC METABOLIC [id number] 07:03:00 Test Item Value Reference Range Interpretation Comments SODIUM (BEAKER) 142 meq/L 135-148 (test code = 381) POTASSIUM (BEAKER) 3.2 meq/L 3.6-5.5 L (test code = 379) CHLORIDE (BEAKER) 110 meq/L 98-106 H (test code = 382) CO2 (BEAKER) (test 22 meq/L 20-29 code = 355) BLOOD UREA NITROGEN 13 mg/dL 10-26 (BEAKER) (test code = 354) CREATININE (BEAKER) 0.82 mg/dL 0.50-1.20 (test code = 358) GLUCOSE RANDOM 134 mg/dL 70-110 H (BEAKER) (test code = 652) CALCIUM (BEAKER) 8.2 mg/dL 8.5-10.5 L (test code = 697) EGFR (BEAKER) (test 69 mL/min/1.73 ESTIMA BEENA GFR IS code = 1092) sq m NOT ACCURATE CREATININE CLEARANCE IN PREDICTING GLOMERULAR FILTRATION RATE . ESTIMATED GFR I S NOT APPLICABLE FOR DIALYSIS PATIEN TS. CBC W/PLT COUNT & AUTO [id number] 06:45:00 Test Item Value Reference Range Interpretation Comments WHITE BLOOD CELL COUNT (BEAKER) 13.8 K/ L 4.0-10.0 H (test code = 775) RED BLOOD CELL COUNT (BEAKER) 3.12 M/ L 4.00-5.00 L (test code = 761) HEMOGLOBIN (BEAKER) (test code = 8.9 GM/DL 12.0-15.5 L 410) HEMATOCRIT (BEAKER) (test code = 29.5 % 36.0-46.0 L 411) MEAN CORPUSCULAR VOLUME (BEAKER) 94.6 fL 82.0-99.0 (test code = 753) MEAN CORPUSCULAR HEMOGLOBIN 28.5 pg 27.0-33.0 (BEAKER) (test code = 751) MEAN CORPUSCULAR HEMOGLOBIN CONC 30.2 GM/DL 32.0-36.0 L (BEAKER) (test code = 752) RED CELL DISTRIBUTION WIDTH 13.4 % 12.0-15.0 (BEAKER) (test code = 412) PLATELET COUNT (BEAKER) (test 181 K/CU MM 150-430 code = 756) MEAN PLATELET VOLUME (BEAKER) 10.2 fL 6.0-11.5 (test code = 754) NUCLEATED RED BLOOD CELLS 0 /100 WBC 0-0 (BEAKER) (test code = 413) NEUTROPHILS RELATIVE PERCENT 66 % (BEAKER) (test code = 429) LYMPHOCYTES RELATIVE PERCENT 15 % (BEAKER) (test code = 430) MONOCYTES RELATIVE PERCENT 14 % (BEAKER) (test code = 431) EOSINOPHILS RELATIVE PERCENT 3 % (BEAKER) (test code = 432) BASOPHILS RELATIVE PERCENT 0 % (BEAKER) (test code = 437) NEUTROPHILS ABSOLUTE COUNT 9.17 K/ L 1.80-8.00 H (BEAKER) (test code = 670) LYMPHOCYTES ABSOLUTE COUNT 2.11 K/ L 1.48-4.50 (BEAKER) (test code = 414) MONOCYTES ABSOLUTE COUNT (BEAKER) 1.98 K/ L 0.00-1.30 H (test code = 415) EOSINOPHILS ABSOLUTE COUNT 0.44 K/ L 0.00-0.50 (BEAKER) (test code = 416) BASOPHILS ABSOLUTE COUNT (BEAKER) 0.06 K/ L 0.00-0.20 (test code = 417) IMMATURE GRANULOCYTES-RELATIVE 1 % 0-0 H PERCENT (BEAKER) (test code = 2801) TISSUE [id number] 15:14:00Surgical Pathology Report Case: [id number] Authorizing Provider: Georgiana Marquez MD Collected: 11/05/2018 1116 Ordering Location: [facility] Med Surg 5th Floor Received: 11/05/2018 1220 Pathologist: Suzanne Morales MD Specimen: Bi opsy, Gastric STOMACH, BIOPSY: - ANTRAL-TYPE MUCOSA WITH REACTIVE GASTROPATHY - NO INTESTINAL METAPLASIA, DYSPLASIA OR MALIGNANCY SEEN - NEGATIVE FOR H. PYLORI ORGANISMS Signing Pathologist Direct Phone Line: [phone] signed by Suzanne Morales MD on 11/06/2018 at 3:14 PM/[id number] Biopsy gastricThe specimen is received in fixative and designated as "biopsy gastric" consists of two white-sewell tissue fragments ranging in size from 0.1 to 0.2 cm in greatest dimension. Both tissue fragments are submitted into A1. MG/ew Performed The interpretation of this case included the use of immunohistochemistry or special stains. Appropriate and reactive controls were performed. Jazmyn Schmidt: Negative for Helicobacter pylori organisms [facility], Department of Pathology, [address] [place] [id number], [facility], Department of Pathology, [address] [place] [address], [facility], Department of Pathology, [address] [place] [id number], [id number] 14:22:00 Test Item Value Reference Range Interpretation Comments TROPONIN I (BEAKER) (test code = 397) < ng/mL 0.00-0.15 Troponin I (TnI) levels must be interpreted in the context of the presenting symptoms and the clinical findings. Elevated TnI levels indicate myocardial damage, but are not specific for ischemic heart disease. Elevated TnI levels are seen in patients with other cardiac conditions (including myocarditis and congestive heart failure), and slight TnI elevations occur in patients with other conditions, including sepsis, renal failure, acidosis, acute neurological disease, and persistent tachyarrhythmia.CREATINE KINASE (CK)2018-11-06 14:16:00 Test Item Value Reference Range Interpretation Comments CREATINE KINASE TOTAL (BEAKER) (test 105 U/L 25-235 code = 380) OCCULT BLOOD, [id number] 12:48:00 Test Item Value Reference Range Interpretation Comments FECAL OCCULT BLOOD (BEAKER) (test Negative Negative code = 618) RAD, CHEST, 1 VIEW, NON [id number] 11:16:00Reason for exam:- >leucocytosisShould this be performed at the bedside?->YesFINAL REPORT AP chest dated 11/06/2018 COMPARISON: October 31, 2018 Comment: Heart is normal in size. Thoracic aorta is ectatic. Stent is seen in the thoracic aorta. Pulmonary vasculature is unremarkable. Lungs are clear. No pulmonary infiltrate or pleural effusion. Port-A-Cath is present. IMPRESSION: No interval change. Signed: Divya Wills MDReport Verified Date/Time: 11/06/2018 11:16:04 Reading Location: [facility] Radiology Reading Room IRON, TIBC, % SAT. (WITHOUT FERRITIN)2018-11-06 10:25:00 Test Item Value Reference Range Interpretation Comments IRON (BEAKER) (test code = 547) 21.0 ug/dL 40.0-160.0 L TOTAL IRON BINDING CAPACITY 236 ug/dL 250-450 L (BEAKER) (test code = 769) IRON % SATURATION (2) (BEAKER) 9 % 20-55 L (test code = 2590) [id number] 06:25:00 Test Item Value Reference Range Interpretation Comments FERRITIN (BEAKER) (test code = 361) 55 ng/mL 10-291 BASIC METABOLIC [id number] 06:03:00 Test Item Value Reference Range Interpretation Comments SODIUM (BEAKER) 138 meq/L 135-148 (test code = 381) POTASSIUM (BEAKER) 3.2 meq/L 3.6-5.5 L (test code = 379) CHLORIDE (BEAKER) 104 meq/L 98-106 (test code = 382) CO2 (BEAKER) (test 23 meq/L 20-29 code = 355) BLOOD UREA NITROGEN 11 mg/dL 10-26 (BEAKER) (test code = 354) CREATININE (BEAKER) 0.77 mg/dL 0.50-1.20 (test code = 358) GLUCOSE RANDOM 115 mg/dL 70-110 H (BEAKER) (test code = 652) CALCIUM (BEAKER) 8.1 mg/dL 8.5-10.5 L (test code = 697) EGFR (BEAKER) (test 74 mL/min/1.73 ESTIMA BEENA GFR IS code = 1092) sq m NOT ACCURATE CREATININE CLEARANCE IN PREDICTING GLOMERULAR FILTRATION RATE . ESTIMATED GFR I S NOT APPLICABLE FOR DIALYSIS PATIEN TS. CBC W/PLT COUNT & AUTO [id number] 05:46:00 Test Item Value Reference Range Interpretation Comments WHITE BLOOD CELL COUNT (BEAKER) 22.8 K/ L 4.0-10.0 H (test code = 775) RED BLOOD CELL COUNT (BEAKER) 3.20 M/ L 4.00-5.00 L (test code = 761) HEMOGLOBIN (BEAKER) (test code = 9.3 GM/DL 12.0-15.5 L 410) HEMATOCRIT (BEAKER) (test code = 29.6 % 36.0-46.0 L 411) MEAN CORPUSCULAR VOLUME (BEAKER) 92.5 fL 82.0-99.0 (test code = 753) MEAN CORPUSCULAR HEMOGLOBIN 29.1 pg 27.0-33.0 (BEAKER) (test code = 751) MEAN CORPUSCULAR HEMOGLOBIN CONC 31.4 GM/DL 32.0-36.0 L (BEAKER) (test code = 752) RED CELL DISTRIBUTION WIDTH 13.3 % 12.0-15.0 (BEAKER) (test code = 412) PLATELET COUNT (BEAKER) (test 182 K/CU MM 150-430 code = 756) MEAN PLATELET VOLUME (BEAKER) 10.1 fL 6.0-11.5 (test code = 754) NUCLEATED RED BLOOD CELLS 0 /100 WBC 0-0 (BEAKER) (test code = 413) NEUTROPHILS RELATIVE PERCENT 85 % (BEAKER) (test code = 429) LYMPHOCYTES RELATIVE PERCENT 4 % (BEAKER) (test code = 430) MONOCYTES RELATIVE PERCENT 10 % (BEAKER) (test code = 431) EOSINOPHILS RELATIVE PERCENT 0 % (BEAKER) (test code = 432) BASOPHILS RELATIVE PERCENT 0 % (BEAKER) (test code = 437) NEUTROPHILS ABSOLUTE COUNT 19.47 K/ L 1.80-8.00 H (BEAKER) (test code = 670) LYMPHOCYTES ABSOLUTE COUNT 0.90 K/ L 1.48-4.50 L (BEAKER) (test code = 414) MONOCYTES ABSOLUTE COUNT (BEAKER) 2.27 K/ L 0.00-1.30 H (test code = 415) EOSINOPHILS ABSOLUTE COUNT 0.00 K/ L 0.00-0.50 (BEAKER) (test code = 416) BASOPHILS ABSOLUTE COUNT (BEAKER) 0.04 K/ L 0.00-0.20 (test code = 417) IMMATURE GRANULOCYTES-RELATIVE 1 % 0-0 H PERCENT (BEAKER) (test code = 1521) URINALYSIS W/ [id number] 09:03:00 Test Item Value Reference Range Interpretation Comments COLOR (BEAKER) (test code = Yellow 470) CLARITY (BEAKER) (test code = Slightly Cloudy 469) SPECIFIC GRAVITY UA (BEAKER) <= 1.001-1.035 (test code = 468) PH UA (BEAKER) (test code = 6.0 5.0-8.0 467) PROTEIN UA (BEAKER) (test Negative Negative code = 464) GLUCOSE UA (BEAKER) (test Negative Negative code = 365) KETONES UA (BEAKER) (test Negative Negative code = 371) BILIRUBIN UA (BEAKER) (test Negative Negative code = 462) BLOOD UA (BEAKER) (test code Trace Negative A = 461) NITRITE UA (BEAKER) (test Positive Negative A code = 465) LEUKOCYTE ESTERASE UA Large Negative A (BEAKER) (test code = 466) UROBILINOGEN UA (BEAKER) 0.2 mg/dL 0.2-1.0 (test code = 463) BACTERIA (BEAKER) (test code Many = 517) MUCUS (BEAKER) (test code = Occasional 1574) RBC UA-MANUAL (BEAKER) (test 5-10 /HPF code = 1659) WBC UA-MANUAL (BEAKER) (test 5-10 /HPF code = 1661) SQUAMOUS EPITHELIAL MANUAL <5 /HPF (BEAKER) (test code = 1663) SOURCE(BEAKER) (test code = 2795) BASIC METABOLIC [id number] 07:01:00 Test Item Value Reference Range Interpretation Comments SODIUM (BEAKER) 144 meq/L 135-148 (test code = 381) POTASSIUM (BEAKER) 3.3 meq/L 3.6-5.5 L (test code = 379) CHLORIDE (BEAKER) 118 meq/L 98-106 H (test code = 382) CO2 (BEAKER) (test 21 meq/L 20-29 code = 355) BLOOD UREA NITROGEN 6 mg/dL 10-26 L (BEAKER) (test code = 354) CREATININE (BEAKER) 0.68 mg/dL 0.50-1.20 (test code = 358) GLUCOSE RANDOM 98 mg/dL 70-110 (BEAKER) (test code = 652) CALCIUM (BEAKER) 8.1 mg/dL 8.5-10.5 L (test code = 697) EGFR (BEAKER) (test 86 mL/min/1.73 ESTIMA BEENA GFR IS code = 1092) sq m NOT ACCURATE CREATININE CLEARANCE IN PREDICTING GLOMERULAR FILTRATION RATE . ESTIMATED GFR I S NOT APPLICABLE FOR DIALYSIS PATIEN TS. CBC W/PLT COUNT & AUTO [id number] 06:49:00 Test Item Value Reference Range Interpretation Comments WHITE BLOOD CELL COUNT (BEAKER) 11.2 K/ L 4.0-10.0 H (test code = 775) RED BLOOD CELL COUNT (BEAKER) 3.04 M/ L 4.00-5.00 L (test code = 761) HEMOGLOBIN (BEAKER) (test code = 8.8 GM/DL 12.0-15.5 L 410) HEMATOCRIT (BEAKER) (test code = 28.9 % 36.0-46.0 L 411) MEAN CORPUSCULAR VOLUME (BEAKER) 95.1 fL 82.0-99.0 (test code = 753) MEAN CORPUSCULAR HEMOGLOBIN 28.9 pg 27.0-33.0 (BEAKER) (test code = 751) MEAN CORPUSCULAR HEMOGLOBIN CONC 30.4 GM/DL 32.0-36.0 L (BEAKER) (test code = 752) RED CELL DISTRIBUTION WIDTH 13.2 % 12.0-15.0 (BEAKER) (test code = 412) PLATELET COUNT (BEAKER) (test 193 K/CU MM 150-430 code = 756) MEAN PLATELET VOLUME (BEAKER) 10.2 fL 6.0-11.5 (test code = 754) NUCLEATED RED BLOOD CELLS 0 /100 WBC 0-0 (BEAKER) (test code = 413) NEUTROPHILS RELATIVE PERCENT 57 % (BEAKER) (test code = 429) LYMPHOCYTES RELATIVE PERCENT 19 % (BEAKER) (test code = 430) MONOCYTES RELATIVE PERCENT 17 % (BEAKER) (test code = 431) EOSINOPHILS RELATIVE PERCENT 7 % (BEAKER) (test code = 432) BASOPHILS RELATIVE PERCENT 1 % (BEAKER) (test code = 437) NEUTROPHILS ABSOLUTE COUNT 6.35 K/ L 1.80-8.00 (BEAKER) (test code = 670) LYMPHOCYTES ABSOLUTE COUNT 2.15 K/ L 1.48-4.50 (BEAKER) (test code = 414) MONOCYTES ABSOLUTE COUNT (BEAKER) 1.88 K/ L 0.00-1.30 H (test code = 415) EOSINOPHILS ABSOLUTE COUNT 0.76 K/ L 0.00-0.50 H (BEAKER) (test code = 416) BASOPHILS ABSOLUTE COUNT (BEAKER) 0.06 K/ L 0.00-0.20 (test code = 417) IMMATURE GRANULOCYTES-RELATIVE 0 % 0-0 PERCENT (BEAKER) (test code = 2801) POCT-GLUCOSE [id number] 20:58:00 Test Item Value Reference Range Interpretation Comments POC-GLUCOSE METER 137 mg/dL 70-110 H TESTED AT [facility] [address] (BEAKER) (test code [facility] [place] = 1538) [address] BASIC METABOLIC [id number] 06:23:00 Test Item Value Reference Range Interpretation Comments SODIUM (BEAKER) 142 meq/L 135-148 (test code = 381) POTASSIUM (BEAKER) 3.9 meq/L 3.6-5.5 (test code = 379) CHLORIDE (BEAKER) 114 meq/L 98-106 H (test code = 382) CO2 (BEAKER) (test 21 meq/L 20-29 code = 355) BLOOD UREA NITROGEN 8 mg/dL 10-26 L (BEAKER) (test code = 354) CREATININE (BEAKER) 0.72 mg/dL 0.50-1.20 (test code = 358) GLUCOSE RANDOM 101 mg/dL 70-110 (BEAKER) (test code = 652) CALCIUM (BEAKER) 8.5 mg/dL 8.5-10.5 (test code = 697) EGFR (BEAKER) (test 80 mL/min/1.73 ESTIMA BEENA GFR IS code = 1092) sq m NOT ACCURATE CREATININE CLEARANCE IN PREDICTING GLOMERULAR FILTRATION RATE . ESTIMATED GFR I S NOT APPLICABLE FOR DIALYSIS PATIEN TS. CBC W/PLT COUNT & AUTO [id number] 06:00:00 Test Item Value Reference Range Interpretation Comments WHITE BLOOD CELL COUNT (BEAKER) 10.9 K/ L 4.0-10.0 H (test code = 775) RED BLOOD CELL COUNT (BEAKER) 3.19 M/ L 4.00-5.00 L (test code = 761) HEMOGLOBIN (BEAKER) (test code = 9.2 GM/DL 12.0-15.5 L 410) HEMATOCRIT (BEAKER) (test code = 30.6 % 36.0-46.0 L 411) MEAN CORPUSCULAR VOLUME (BEAKER) 95.9 fL 82.0-99.0 (test code = 753) MEAN CORPUSCULAR HEMOGLOBIN 28.8 pg 27.0-33.0 (BEAKER) (test code = 751) MEAN CORPUSCULAR HEMOGLOBIN CONC 30.1 GM/DL 32.0-36.0 L (BEAKER) (test code = 752) RED CELL DISTRIBUTION WIDTH 13.3 % 12.0-15.0 (BEAKER) (test code = 412) PLATELET COUNT (BEAKER) (test 208 K/CU MM 150-430 code = 756) MEAN PLATELET VOLUME (BEAKER) 10.0 fL 6.0-11.5 (test code = 754) NUCLEATED RED BLOOD CELLS 0 /100 WBC 0-0 (BEAKER) (test code = 413) NEUTROPHILS RELATIVE PERCENT 54 % (BEAKER) (test code = 429) LYMPHOCYTES RELATIVE PERCENT 20 % (BEAKER) (test code = 430) MONOCYTES RELATIVE PERCENT 17 % (BEAKER) (test code = 431) EOSINOPHILS RELATIVE PERCENT 9 % (BEAKER) (test code = 432) BASOPHILS RELATIVE PERCENT 1 % (BEAKER) (test code = 437) NEUTROPHILS ABSOLUTE COUNT 5.84 K/ L 1.80-8.00 (BEAKER) (test code = 670) LYMPHOCYTES ABSOLUTE COUNT 2.16 K/ L 1.48-4.50 (BEAKER) (test code = 414) MONOCYTES ABSOLUTE COUNT (BEAKER) 1.81 K/ L 0.00-1.30 H (test code = 415) EOSINOPHILS ABSOLUTE COUNT 0.95 K/ L 0.00-0.50 H (BEAKER) (test code = 416) BASOPHILS ABSOLUTE COUNT (BEAKER) 0.05 K/ L 0.00-0.20 (test code = 417) IMMATURE GRANULOCYTES-RELATIVE 1 % 0-0 H PERCENT (BEAKER) (test code = 2801) TROPONIN [id number] 06:45:00 Test Item Value Reference Range Interpretation Comments TROPONIN I (BEAKER) (test code = 397) < ng/mL 0.00-0.15 Troponin I (TnI) levels must be interpreted in the context of the presenting symptoms and the clinical findings. Elevated TnI levels indicate myocardial damage, but are not specific for ischemic heart disease. Elevated TnI levels are seen in patients with other cardiac conditions (including myocarditis and congestive heart failure), and slight TnI elevations occur in patients with other conditions, including sepsis, renal failure, acidosis, acute neurological disease, and persistent tachyarrhythmia.BASIC METABOLIC [id number] 06:40:00 Test Item Value Reference Range Interpretation Comments SODIUM (BEAKER) 143 meq/L 135-148 (test code = 381) POTASSIUM (BEAKER) 4.2 meq/L 3.6-5.5 (test code = 379) CHLORIDE (BEAKER) 115 meq/L 98-106 H (test code = 382) CO2 (BEAKER) (test 20 meq/L 20-29 code = 355) BLOOD UREA NITROGEN 6 mg/dL 10-26 L (BEAKER) (test code = 354) CREATININE (BEAKER) 0.76 mg/dL 0.50-1.20 (test code = 358) GLUCOSE RANDOM 112 mg/dL 70-110 H (BEAKER) (test code = 652) CALCIUM (BEAKER) 8.4 mg/dL 8.5-10.5 L (test code = 697) EGFR (BEAKER) (test 75 mL/min/1.73 ESTIMA BEENA GFR IS code = 1092) sq m NOT ACCURATE CREATININE CLEARANCE IN PREDICTING GLOMERULAR FILTRATION RATE . ESTIMATED GFR I S NOT APPLICABLE FOR DIALYSIS PATIEN TS. CBC W/PLT COUNT & AUTO [id number] 06:12:00 Test Item Value Reference Range Interpretation Comments WHITE BLOOD CELL COUNT (BEAKER) 10.5 K/ L 4.0-10.0 H (test code = 775) RED BLOOD CELL COUNT (BEAKER) 3.27 M/ L 4.00-5.00 L (test code = 761) HEMOGLOBIN (BEAKER) (test code = 9.6 GM/DL 12.0-15.5 L 410) HEMATOCRIT (BEAKER) (test code = 31.2 % 36.0-46.0 L 411) MEAN CORPUSCULAR VOLUME (BEAKER) 95.4 fL 82.0-99.0 (test code = 753) MEAN CORPUSCULAR HEMOGLOBIN 29.4 pg 27.0-33.0 (BEAKER) (test code = 751) MEAN CORPUSCULAR HEMOGLOBIN CONC 30.8 GM/DL 32.0-36.0 L (BEAKER) (test code = 752) RED CELL DISTRIBUTION WIDTH 13.3 % 12.0-15.0 (BEAKER) (test code = 412) PLATELET COUNT (BEAKER) (test 209 K/CU MM 150-430 code = 756) MEAN PLATELET VOLUME (BEAKER) 9.9 fL 6.0-11.5 (test code = 754) NUCLEATED RED BLOOD CELLS 0 /100 WBC 0-0 (BEAKER) (test code = 413) NEUTROPHILS RELATIVE PERCENT 59 % (BEAKER) (test code = 429) LYMPHOCYTES RELATIVE PERCENT 18 % (BEAKER) (test code = 430) MONOCYTES RELATIVE PERCENT 14 % (BEAKER) (test code = 431) EOSINOPHILS RELATIVE PERCENT 8 % (BEAKER) (test code = 432) BASOPHILS RELATIVE PERCENT 1 % (BEAKER) (test code = 437) NEUTROPHILS ABSOLUTE COUNT 6.13 K/ L 1.80-8.00 (BEAKER) (test code = 670) LYMPHOCYTES ABSOLUTE COUNT 1.86 K/ L 1.48-4.50 (BEAKER) (test code = 414) MONOCYTES ABSOLUTE COUNT (BEAKER) 1.50 K/ L 0.00-1.30 H (test code = 415) EOSINOPHILS ABSOLUTE COUNT 0.88 K/ L 0.00-0.50 H (BEAKER) (test code = 416) BASOPHILS ABSOLUTE COUNT (BEAKER) 0.06 K/ L 0.00-0.20 (test code = 417) IMMATURE GRANULOCYTES-RELATIVE 0 % 0-0 PERCENT (BEAKER) (test code = 2801) RAD, ABDOMEN/KUB 1 VIEW [id number] 15:19:00Reason for exam:->follow upFINAL REPORT Abdomen. MEDICAL HISTORY: Follow-up. COMPARISON STUDY: March 06, 2008. FINDINGS: Multiple gas filled loops of bowel are seen, as on previous. There are surgical clips. An IVC filter is noted. Degenerative changes are present. This film is insensitive for the detection of free air. IMPRESSION: No acute abnormality seen. Signed: Renny Tamze MDReport Verified Date/Time: 11/02/2018 15:19:57 Reading Location: [facility] Consult Reading Room ONIN [id number] 05:57:00 Test Item Value Reference Range Interpretation Comments TROPONIN I (BEAKER) (test code = 397) < ng/mL 0.00-0.15 Troponin I (TnI) levels must be interpreted in the context of the presenting symptoms and the clinical findings. Elevated TnI levels indicate myocardial damage, but are not specific for ischemic heart disease. Elevated TnI levels are seen in patients with other cardiac conditions (including myocarditis and congestive heart failure), and slight TnI elevations occur in patients with other conditions, including sepsis, renal failure, acidosis, acute neurological disease, and persistent tachyarrhythmia.TROPONIN [id number] 18:46:00 Test Item Value Reference Range Interpretation Comments TROPONIN I (BEAKER) (test code = 397) < ng/mL 0.00-0.15 Troponin I (TnI) levels must be interpreted in the context of the presenting symptoms and the clinical findings. Elevated TnI levels indicate myocardial damage, but are not specific for ischemic heart disease. Elevated TnI levels are seen in patients with other cardiac conditions (including myocarditis and congestive heart failure), and slight TnI elevations occur in patients with other conditions, including sepsis, renal failure, acidosis, acute neurological disease, and persistent tachyarrhythmia.TROPONIN [id number] 09:17:00 Test Item Value Reference Range Interpretation Comments TROPONIN I (BEAKER) (test code = 397) < ng/mL 0.00-0.15 Troponin I (TnI) levels must be interpreted in the context of the presenting symptoms and the clinical findings. Elevated TnI levels indicate myocardial damage, but are not specific for ischemic heart disease. Elevated TnI levels are seen in patients with other cardiac conditions (including myocarditis and congestive heart failure), and slight TnI elevations occur in patients with other conditions, including sepsis, renal failure, acidosis, acute neurological disease, and persistent tachyarrhythmia.BASIC METABOLIC [id number] 05:37:00 Test Item Value Reference Range Interpretation Comments SODIUM (BEAKER) 140 meq/L 135-148 (test code = 381) POTASSIUM (BEAKER) 3.9 meq/L 3.6-5.5 (test code = 379) CHLORIDE (BEAKER) 111 meq/L 98-106 H (test code = 382) CO2 (BEAKER) (test 22 meq/L 20-29 code = 355) BLOOD UREA NITROGEN 14 mg/dL 10-26 (BEAKER) (test code = 354) CREATININE (BEAKER) 0.78 mg/dL 0.50-1.20 (test code = 358) GLUCOSE RANDOM 96 mg/dL 70-110 (BEAKER) (test code = 652) CALCIUM (BEAKER) 7.9 mg/dL 8.5-10.5 L (test code = 697) EGFR (BEAKER) (test 73 mL/min/1.73 ESTIMA BEENA GFR IS code = 1092) sq m NOT ACCURATE CREATININE CLEARANCE IN PREDICTING GLOMERULAR FILTRATION RATE . ESTIMATED GFR I S NOT APPLICABLE FOR DIALYSIS PATIJEWELS TS. LIPID [id number] 05:36:00 Test Item Value Reference Range Interpretation Comments TRIGLYCERIDES (BEAKER) (test code = 78 mg/dL 540) CHOLESTEROL (BEAKER) (test code = 129 mg/dL 631) HDL CHOLESTEROL (BEAKER) (test code 48 mg/dL = 976) LDL CHOLESTEROL CALCULATED (BEAKER) 65 mg/dL (test code = 633) Triglyceride Reference Range: Low Risk <150 Borderline 150-199 High Risk 200-499 Very High Risk >=500Cholesterol Reference Range: Low Risk <200 Borderline 200-239 High Risk >240HDL Cholesterol Reference Range: Low Risk >=60 High Risk <40LDL Cholesterol Reference Range: Optimal <100 Near Optimal 100-129 Borderline 130-159 High 160-189 Very High >=190HEMOGLOBIN [id number] 05:33:00 Test Item Value Reference Range Interpretation Comments HEMOGLOBIN A1C (BEAKER) (test code = 5.7 % 4.3-6.1 368) CBC W/PLT COUNT & AUTO [id number] 05:19:00 Test Item Value Reference Range Interpretation Comments WHITE BLOOD CELL COUNT (BEAKER) 9.6 K/ L 4.0-10.0 (test code = 775) RED BLOOD CELL COUNT (BEAKER) 3.10 M/ L 4.00-5.00 L (test code = 761) HEMOGLOBIN (BEAKER) (test code = 9.1 GM/DL 12.0-15.5 L 410) HEMATOCRIT (BEAKER) (test code = 29.1 % 36.0-46.0 L 411) MEAN CORPUSCULAR VOLUME (BEAKER) 93.9 fL 82.0-99.0 (test code = 753) MEAN CORPUSCULAR HEMOGLOBIN 29.4 pg 27.0-33.0 (BEAKER) (test code = 751) MEAN CORPUSCULAR HEMOGLOBIN CONC 31.3 GM/DL 32.0-36.0 L (BEAKER) (test code = 752) RED CELL DISTRIBUTION WIDTH 13.5 % 12.0-15.0 (BEAKER) (test code = 412) PLATELET COUNT (BEAKER) (test 221 K/CU MM 150-430 code = 756) MEAN PLATELET VOLUME (BEAKER) 9.7 fL 6.0-11.5 (test code = 754) NUCLEATED RED BLOOD CELLS 0 /100 WBC 0-0 (BEAKER) (test code = 413) NEUTROPHILS RELATIVE PERCENT 56 % (BEAKER) (test code = 429) LYMPHOCYTES RELATIVE PERCENT 21 % (BEAKER) (test code = 430) MONOCYTES RELATIVE PERCENT 15 % (BEAKER) (test code = 431) EOSINOPHILS RELATIVE PERCENT 7 % (BEAKER) (test code = 432) BASOPHILS RELATIVE PERCENT 1 % (BEAKER) (test code = 437) NEUTROPHILS ABSOLUTE COUNT 5.42 K/ L 1.80-8.00 (BEAKER) (test code = 670) LYMPHOCYTES ABSOLUTE COUNT 1.98 K/ L 1.48-4.50 (BEAKER) (test code = 414) MONOCYTES ABSOLUTE COUNT (BEAKER) 1.44 K/ L 0.00-1.30 H (test code = 415) EOSINOPHILS ABSOLUTE COUNT 0.66 K/ L 0.00-0.50 H (BEAKER) (test code = 416) BASOPHILS ABSOLUTE COUNT (BEAKER) 0.08 K/ L 0.00-0.20 (test code = 417) IMMATURE GRANULOCYTES-RELATIVE 0 % 0-0 PERCENT (BEAKER) (test code = 2801) TROPONIN [id number] 01:59:00 Test Item Value Reference Range Interpretation Comments TROPONIN I (BEAKER) (test code = 397) < ng/mL 0.00-0.15 Troponin I (TnI) levels must be interpreted in the context of the presenting symptoms and the clinical findings. Elevated TnI levels indicate myocardial damage, but are not specific for ischemic heart disease. Elevated TnI levels are seen in patients with other cardiac conditions (including myocarditis and congestive heart failure), and slight TnI elevations occur in patients with other conditions, including sepsis, renal failure, acidosis, acute neurological disease, and persistent tachyarrhythmia.CT, [id number] 21:28:00Reason for exam:->ABDOMINAL PAINpt c/o mid abdominal pain/HX:chrons, and now c/o CP for 1wkWhat is the patient's sedation requirement?->No SedationFINAL REPORT EXAM: CT of the abdomen and pelvis, with contrast CLINICAL HISTORY: Abdominal pain. TECHNIQUE: CT of the abdomen and pelvis was performed with intravenous contrast administration. This exam was performed according to our departmental dose optimization program whichincludes automated exposure control, adjustment of the mA and/or kV according to patient's size and/or use of iterative reconstructive technique. COMPARISON: CT abdomen and pelvis 03/08/2008 FINDINGS: LOWER CHEST: Partially imaged endovascular stent in a tortuous descending thoracic aorta. Bibasilar dependent atelectasis. Mild pectus excavatum deformity. LIVER: Within normal limits.BILE DUCTS: Pneumobilia. Mild biliary ductal dilatation, predominantly left-sided. Findings are similar to prior exam.GALL BLADDER: Status post cholecystectomy.PANCREAS: Within normal limits.SPLEEN: Within normal limits.ADRENALS: Within normal limits.KIDNEYS/URETERS: Small stable right lower pole renal cyst. No hydroneph rosis or radiopaque stones. URINARY BLADDER: Within normal limits.REPRODUCTIVE ORGANS: Status post hysterectomy. No adnexal masses. BOWEL/MESENTERY: Status post gastrojejunostomy. Stool filled colon. Colonic diverticulosis without acute diverticulitis. No bowel obstruction or abnormal wall thickening. Nonvisualization of the appendix.PERITONEUM/RETROPERITONEUM: No free air, free fluid or fluid collection. VESSELS: Infrarenal IVC filter. Atheromatous changes of the aorta and branches with calcified and noncalcified plaque. Tortuous abdominal aorta. No abdominal aortic aneurysm. LYMPH NODES: No abdominal or pelvic lymphadenopathy.SOFT TISSUES: Within normal limits.BONES: Degenerative changes of the visualized spine and right hip. No suspicious osseous lesions. Mild age-indeterminate compression fracture deformity of the T9 vertebral body. IMPRESSION: Stool-filled colon. Colonic diverticulosis without acute diverticulitis. No bowel obstruction, free air or fluid collection. Signed: Derian Mast MDReport Verified Date/Time: 10/31/2018 21:28:52 Reading Location: [facility] C013Y CT Body Reading Room RAD, CHEST, 1 VIEW, NON [id number] 20:04:00Reason for exam:->chest pain pt c/o mid abdominal pain/HX:chrons, and now c/o CP for 1wkFINAL REPORT INDICATION: chest pain COMPARISON:February 26, 2008 TECHNIQUE: Chest radiograph, single view, portable technique. FINDINGS / IMPRESSION: There is a stent graft in the descending thoracic aorta. Heart shadow is not enlarged and no pulmonary venous congestion or edema is demonstrated. No pneumothorax, consolidation, or pleural effusion. Left chest port terminates at the cavoatrial junction. Osseous structures are unremarkable. Signed: Gagandeep Narvaez MDReport Verified Date/Time: 10/31/2018 20:04:09 Reading Location: [facility] C013W Consult Reading Room Electronically sign ed by: GAGANDEEP NARVAEZ M.D. on 10/31/2018 08:04 PMTROPONIN [id number] 19:49:00 Test Item Value Reference Range Interpretation Comments TROPONIN I (CELIO) (test code = 397) < ng/mL 0.00-0.15 Troponin I (TnI) levels must be interpreted in the context of the presenting symptoms and the clinical findings. Elevated TnI levels indicate myocardial damage, but are not specific for ischemic heart disease. Elevated TnI levels are seen in patients with other cardiac conditions (including myocarditis and congestive heart failure), and slight TnI elevations occur in patients with other conditions, including sepsis, renal failure, acidosis, acute neurological disease, and persistent tachyarrhythmia.[id number] 19:43:00 Test Item Value Reference Range Interpretation Comments LIPASE (CELIO) (test code = 749) 81 U/L 6-51 H CREATINE KINASE (CK)2018-10-31 19:43:00 Test Item Value Reference Range Interpretation Comments CREATINE KINASE TOTAL (BEAKER) (test 56 U/L 25-235 code = 380) HEPATIC FUNCTION [id number] 19:42:00 Test Item Value Reference Range Interpretation Comments TOTAL PROTEIN (BEAKER) (test code = 6.6 gm/dL 6.0-8.5 770) ALBUMIN (BEAKER) (test code = 1145) 3.8 g/dL 3.5-5.0 BILIRUBIN TOTAL (BEAKER) (test code < mg/dL 0.1-1.2 = 377) BILIRUBIN DIRECT (BEAKER) (test 0.1 mg/dL 0.0-0.4 code = 706) ALKALINE PHOSPHATASE (BEAKER) (test 60 U/L 30-115 code = 346) AST (SGOT) (BEAKER) (test code = 17 U/L 5-40 353) ALT (SGPT) (BEAKER) (test code = 11 U/L 5-50 347) BASIC METABOLIC [id number] 19:41:00 Test Item Value Reference Range Interpretation Comments SODIUM (BEAKER) 140 meq/L 135-148 (test code = 381) POTASSIUM (BEAKER) 4.2 meq/L 3.6-5.5 (test code = 379) CHLORIDE (BEAKER) 110 meq/L 98-106 H (test code = 382) CO2 (BEAKER) (test 22 meq/L 20-29 code = 355) BLOOD UREA NITROGEN 18 mg/dL 10-26 (BEAKER) (test code = 354) CREATININE (BEAKER) 0.97 mg/dL 0.50-1.20 (test code = 358) GLUCOSE RANDOM 126 mg/dL 70-110 H (BEAKER) (test code = 652) CALCIUM (BEAKER) 8.7 mg/dL 8.5-10.5 (test code = 697) EGFR (BEAKER) (test 57 mL/min/1.73 ESTIMA BEENA GFR IS code = 1092) sq m NOT ACCURATE CREATININE CLEARANCE IN PREDICTING GLOMERULAR FILTRATION RATE . ESTIMATED GFR I S NOT APPLICABLE FOR DIALYSIS PATIEN TS. LACTIC ACID, VENOUS, WHOLE [id number] 19:35:00 Test Item Value Reference Range Interpretation Comments LACTATE BLOOD VENOUS (2) (BEAKER) 0.9 mmol/L 0.5-2.0 (test code = 2872) URINALYSIS W/ REFLEX URINE [id number] 19:28:00 Test Item Value Reference Range Interpretation Comments COLOR (BEAKER) (test code = 470) Yellow CLARITY (BEAKER) (test code = 469) Clear SPECIFIC GRAVITY UA (BEAKER) (test 1.025 1.001-1.035 code = 468) PH UA (BEAKER) (test code = 467) 6.0 5.0-8.0 PROTEIN UA (BEAKER) (test code = Negative Negative 464) GLUCOSE UA (BEAKER) (test code = Negative Negative 365) KETONES UA (BEAKER) (test code = Negative Negative 371) BILIRUBIN UA (BEAKER) (test code = Negative Negative 462) BLOOD UA (BEAKER) (test code = 461) Negative Negative NITRITE UA (BEAKER) (test code = Negative Negative 465) LEUKOCYTE ESTERASE UA (BEAKER) Negative Negative (test code = 466) UROBILINOGEN UA (BEAKER) (test code 0.2 mg/dL 0.2-1.0 = 463) BACTERIA (BEAKER) (test code = 517) None Seen RBC UA-MANUAL (BEAKER) (test code = <5 /HPF 1659) WBC UA-MANUAL (BEAKER) (test code = <5 /HPF 1661) SQUAMOUS EPITHELIAL MANUAL (BEAKER) 5-10 /HPF (test code = 1663) SOURCE(BEAKER) (test code = 2795) CBC W/PLT COUNT & AUTO [id number] 19:20:00 Test Item Value Reference Range Interpretation Comments WHITE BLOOD CELL COUNT (BEAKER) 11.3 K/ L 4.0-10.0 H (test code = 775) RED BLOOD CELL COUNT (BEAKER) 3.36 M/ L 4.00-5.00 L (test code = 761) HEMOGLOBIN (BEAKER) (test code = 9.9 GM/DL 12.0-15.5 L 410) HEMATOCRIT (BEAKER) (test code = 32.0 % 36.0-46.0 L 411) MEAN CORPUSCULAR VOLUME (BEAKER) 95.2 fL 82.0-99.0 (test code = 753) MEAN CORPUSCULAR HEMOGLOBIN 29.5 pg 27.0-33.0 (BEAKER) (test code = 751) MEAN CORPUSCULAR HEMOGLOBIN CONC 30.9 GM/DL 32.0-36.0 L (BEAKER) (test code = 752) RED CELL DISTRIBUTION WIDTH 13.3 % 12.0-15.0 (BEAKER) (test code = 412) PLATELET COUNT (BEAKER) (test 247 K/CU MM 150-430 code = 756) MEAN PLATELET VOLUME (BEAKER) 9.8 fL 6.0-11.5 (test code = 754) NUCLEATED RED BLOOD CELLS 0 /100 WBC 0-0 (BEAKER) (test code = 413) NEUTROPHILS RELATIVE PERCENT 62 % (BEAKER) (test code = 429) LYMPHOCYTES RELATIVE PERCENT 17 % (BEAKER) (test code = 430) MONOCYTES RELATIVE PERCENT 13 % (BEAKER) (test code = 431) EOSINOPHILS RELATIVE PERCENT 6 % (BEAKER) (test code = 432) BASOPHILS RELATIVE PERCENT 1 % (BEAKER) (test code = 437) NEUTROPHILS ABSOLUTE COUNT 6.98 K/ L 1.80-8.00 (BEAKER) (test code = 670) LYMPHOCYTES ABSOLUTE COUNT 1.94 K/ L 1.48-4.50 (BEAKER) (test code = 414) MONOCYTES ABSOLUTE COUNT (BEAKER) 1.51 K/ L 0.00-1.30 H (test code = 415) EOSINOPHILS ABSOLUTE COUNT 0.72 K/ L 0.00-0.50 H (BEAKER) (test code = 416) BASOPHILS ABSOLUTE COUNT (BEAKER) 0.08 K/ L 0.00-0.20 (test code = 417) IMMATURE GRANULOCYTES-RELATIVE 0 % 0-0 PERCENT (BEAKER) (test code = 1682)
--- NOTE | 2021-01-20 10:28 | RAD REPORT ---
EXAM DESCRIPTION: CT - Head Brain Wo Cont - 01/20/2021 10:19 am CLINICAL HISTORY: Dizziness COMPARISON: 2014 TECHNIQUE: Computed axial tomography of the head was obtained. IV contrast was not requested. All CT scans are performed using dose optimization technique as appropriate and may include automated exposure control or mA/KV adjustment according to patient size. FINDINGS: An intracranial bleed is not seen . The ventricles are normal in caliber. No extra-axial fluid collection is noted. Mild low-density areas within periventricular, deep and subcortical white matter likely represent isc hemic changes secondary to small vessel disease. Fluid within the sinuses/ mastoids is not seen. IMPRESSION: No acute intracranial abnormality is seen. If patient's symptoms persist MRI of the bra in would be recommended.
[2021-01-20] MEDS ORDERED: NA CHLORIDE 0.9% 1,000 ML ONE (10:41)
[2021-01-20 11:18] LABS: Absolute Lymphocytes (CBC) 2.5 K/uL (0.7-4.9); Basophils % 0.7 % (0-1.3); Hematocrit 27.3 % (36.0-45.0); Lymphocytes % 25.7 % (15.3-44.8); MPV 7.9 fL (7.6-11.3); RBC Red Blood Cell Count 3.35 M/uL (3.86-4.86)
[2021-01-20 11:22] LABS: Protime INR 1.23
--- NOTE | 2021-01-20 11:25 | RAD REPORT ---
EXAM DESCRIPTION: Jayla Single View01/20/2021 10:30 am CLINICAL HISTORY: Weakness COMPARISON: 2009 FINDINGS: The lungs appear clear of acute infiltrate. The heart is normal size. A stent has been pl aced into the thoracic aorta IMPRESSION: No acute abnormalities displayed
[2021-01-20 11:38] LABS: ALT/SGPT 19 U/L (12-78); AST/SGOT 29 U/L (15-37); Albumin 3.3 g/dL (3.4-5.0); Alkaline Phosphatase 91 U/L (45-117); BUN Blood Urea Nitrogen 15 mg/dL (7-18); Bicarbonate 20 mmol/L (21-32); Bilirubin Direct < 0.1 mg/dL (0-0.2); Bilirubin Total 0.2 mg/dL (0.2-1.0); Glucose Level 78 mg/dL (74-106); NT PRO-BNP 419 pg/mL (<125); Potassium 3.5 mmol/L (3.5-5.1); Protein, Total 7.1 g/dL (6.4-8.2); Sodium Level 142 mmol/L (136-145); Troponin (Emerg Dept Use Only) < 0.02 ng/mL (0.0-0.045)
--- NOTE | 2021-01-20 11:46 | RAD REPORT ---
EXAM DESCRIPTION: MRI - Brain Wo Cont - 01/20/2021 11:24 am CLINICAL HISTORY: Dizziness COMPARISON: January 20, [address] TECHNIQUE: Axial, sagittal, and coronal magnetic images of the brain were obtained. Contrast was not requested FINDINGS: Mild to moderate signal is present within periventricular, deep and subcortical white kalani er bilaterally Diffusion-weighted/ADC mapping does not reveal evidence of acute infarction. The ventricles are normal caliber. An extra-axial fluid collection is not present Fluid within the sinuses/mastoids is not noted IMPRESSION: Mild to moderate signal is present within periventricular, deep and subcortical white ma tter bilaterally probably ischemic changes secondary to small vessel disease No acute intracranial abnormality is displayed
[2021-01-20] MEDS ORDERED: MECLIZINE HCL 12.5 MG TAB ONE (12:09)
[2021-01-20 12:23] LABS: Blood Morphology Comment NOT SEEN (NOT SEEN); Platelet Estimate ADEQ; White Blood Cell Scan OK (OK)
[2021-01-20] MEDS ORDERED: DIAZEPAM 10 MG/2 ML INJ SYRINGE ONE (12:53)
--- NOTE | 2021-01-20 14:38 | EDPHYS ---
Physician Documentation [facility] Name: Lizzie Baron Age: 70 yrs Sex: Female : 1950 Arrival Date: 01/20/2021 Time: 09:16 Bed 4 Private MD: ED Physician Margarito Larson HPI: 01/20 09:53 This 70 yrs old Female presents to ER via Wheelchair with complaints of jmm Vertigo. 09:53 The patient presents with dizziness. Onset: The symptoms/episode began/occurred jmm acutely. Modifying factors: The symptoms are alleviated by lying down, the symptoms are aggravated by changing position. Associated signs and symptoms: Pertinent negatives: shortness of breath, vomiting. This is a 70 year old female with a history of htn, tia, aortic aneurysm that presents to the ED with complaints of dizziness beginning approx 3 weeks ago. patient was discharged from the hospital due to a crohns flare. Patient states her bleeding has decreased since discharge but complains of ongoing weakness. Denies abdominal pain. Patient states she does have some chest pressure without radiation. . Historical: - Allergies: 09:33 Zofran; ss 09:33 Remicade; ss 09:33 Inapsine; ss 09:33 Reglan; ss - PMHx: 09:33 Crohn's; Hypertension; TIA; Aortic aneurysm; DVT; ss 09:41 Atrial Fib; ss - PSHx: 09:33 Aortic aneurysm repair; Cholecystectomy; Hysterectomy; ss - Immunization history:: Adult Immunizations up to date. - Social history:: Smoking status: Patient denies any tobacco usage or history of. ROS: 09:53 Constitutional: Negative for fever, chills, and weight loss. jmm 09:53 Cardiovascular: Positive for chest pain. 09:53 Abdomen/GI: Negative for abdominal pain. 09:53 Neuro: Positive for dizziness. 09:53 All other systems are negative. Exam: 09:53 Head/Face: atraumatic. jmm 09:53 ENT: Moist Mucus Membranes Neck: Trachea midline, Supple Chest/axilla: Normal chest wall appearance and motion. Cardiovascular: Regular rate and rhythm. No edema appreciated Respiratory: Normal respirations, no respiratory distress appreciated Abdomen/GI: Non distended, soft Back: Normal ROM Skin: General appearance color normal 09:53 Constitutional: The patient appears alert, awake, anxious, uncomfortable. 09:53 Eyes: Nystagmus: nystagmus with fast component noted. 09:53 Musculoskeletal/extremity: ROM: intact in all extremities. 09:53 Skin: Appearance: Color: normal in color. 09:53 Neuro: Orientation: is normal, Mentation: is normal, Memory: is normal. 09:53 Psych: Behavior/mood is pleasant, cooperative. Vital Signs: 09:29 BP 91 / 70; Pulse 135; Resp 18; Temp 97.2(TE); Pulse Ox 99% on R/A; Weight 53.52 kg; ss Height 5 ft. 9 in. (175.26 cm); Pain 0/10; 10:50 BP 121 / 87; Pulse 118; Resp 20; Pulse Ox 100% ; sv 11:57 BP 141 / 83; Pulse 83; Resp 18; Pulse Ox 100% on R/A; vg1 12:40 BP 155 / 86; Pulse 76; Resp 15; Pulse Ox 100% ; sv 13:30 BP 151 / 91; Pulse 78; Resp 14; Pulse Ox 100% ; sv 14:00 BP 160 / 97; Pulse 77; Resp 20; Pulse Ox 100% on R/A; vg1 09:29 Body Mass Index 17.43 (53.52 kg, 175.26 cm) ss MDM: 09:53 Patient medically screened. isabel 14:35 Data reviewed: vital signs, nurses notes. Counseling: I had a detailed discussion with isabel the patient and/or guardian regarding: the historical points, exam findings, and any diagnostic results supporting the discharge/admit diagnosis, lab results, radiology results, the need for further work-up and treatment in the hospital. ED course: Patient's symptoms alleviated after iv valium. Patient is able to ambulate as normal now. H/H has increased since discharge from hospital. I do not suspect acute GI bleed. I discussed with the patient the need for admission due to chest pain. Patient declined. Patient was otherwise given strict return precautions. patient understood and agrees with the plan of care. . 01/20 09:58 Order name: Basic Metabolic Panel; Complete Time: 11:39 [facility] 01/20 09:58 Order name: CBC with Diff; Complete Time: 12:26 [facility] 01/20 09:58 Order name: LFT's; Complete Time: 11:39 [facility] 01/20 09:58 Order name: Magnesium; Complete Time: 11:39 [facility] 01/20 09:58 Order name: NT PRO-BNP; Complete Time: 11:39 [facility] 01/20 09:58 Order name: PT-INR; Complete Time: 11:39 [facility] 01/20 09:58 Order name: Troponin (emerg Dept Use Only); Complete Time: 11:39 [facility] 01/20 09:58 Order name: XRAY Chest (1 view); Complete Time: 11:39 [facility] 01/20 09:58 Order name: Type And Screen; Complete Time: 12:06 [facility] 01/20 09:59 Order name: CT Head Brain wo Cont; Complete Time: 10:34 [facility] 01/20 10:52 Order name: MRI - Brain Wo Cont; Complete Time: 11:53 [facility] 01/20 11:20 Order name: CBC Smear Scan; Complete Time: 12:26 [facility] 01/20 09:58 Order name: EKG; Complete Time: 10:00 [facility] 01/20 09:58 Order name: Cardiac monitoring; Complete Time: 11:00 [facility] 01/20 09:58 Order name: EKG - Nurse/Tech; Complete Time: 11:00 [facility] 01/20 09:58 Order name: IV Saline Lock; Complete Time: 11:00 [facility] 01/20 09:58 Order name: Labs collected and sent; Complete Time: 11:00 [facility] 01/20 09:58 Order name: O2 Per Protocol; Complete Time: 10:21 [facility] 01/20 09:58 Order name: O2 Sat Monitoring; Complete Time: 10:21 [facility] 01/20 13:32 Order name: Misc. Order: ambulate; Complete Time: 14:10 jm Administered Medications: 10:54 Drug: NS 0.9% 1000 ml Route: IV; Rate: 1 bolus; Site: Port-a-cath; vg1 13:50 Follow up: IV Status: Completed infusion; IV Intake: 1000ml vg1 11:54 Drug: Meclizine 25 mg Route: PO; vg1 13:51 Follow up: Response: No adverse reaction vg1 12:40 Drug: Valium (diazepam) 2 mg Route: IVP; Site: Port-a-cath; vg1 13:51 Follow up: Response: No adverse reaction vg1 15:13 Drug: HEParin Flush (100 units/mL) 500 units Route: IVP; Site: Port-a-cath; vg1 15:14 Follow up: Response: Medication administered at discharge. vg1 Disposition: 01/21 06:14 Co-signature as Attending Physician, Margarito Larson MD I agree with the assessment and kdr plan of care. Disposition: 01/20/21 14:37 Discharged to Home. Impression: Dizziness and giddiness. - Condition is Stable. - Discharge Instructions: Dizziness. - Prescriptions for Meclizine 25 mg Oral Tablet - take 1 tablet by ORAL route every 8 hours As needed; 30 tablet. - Medication Reconciliation Form, Thank You Letter, Antibiotic Education, Prescription Opioid Use form. - Follow up: Private Physician; When: 2 - 3 days; Reason: Recheck today's complaints, Continuance of care, Re-evaluation by your physician. Signatures: Dispatcher [employer] EDMS Margarito Larson MD MD kdr Mickail, Joel, PA PA [facility] Gayle Cunningham RN RN Margarita Wells RN RN vg1 Corrections: (The following items were deleted from the chart) 01/20 15:19 14:37 01/20/2021 14:37 Discharged to Home. Impression: Dizziness and giddiness. vg1 Condition is Stable. Forms are Medication Reconciliation Form, Thank You Letter, Antibiotic Education, Prescription Opioid Use. Follow up: Private Physician; When: 2 - 3 days; Reason: Recheck today's complaints, Continuance of care, Re-evaluation by your physician. [facility] 15:19 15:19 01/20/2021 14:37 Discharged to Home. Impression: Dizziness and giddiness. vg1 Condition is Stable. Discharge Instructions: Dizziness. Prescriptions for Meclizine 25 mg Oral Tablet - take 1 tablet by ORAL route every 8 hours As needed; 30 tablet. and Forms are Medication Reconciliation Form, Thank You Letter, Antibiotic Education, Prescription Opioid Use. Follow up: Private Physician; When: 2 - 3 days; Reason: Recheck today's complaints, Continuance of care, Re-evaluation by your physician. vg1
--- NOTE | 2021-01-20 14:38 | ER ---
Nurse's Notes [facility] Name: Lizzie Baron Age: 70 yrs Sex: Female : 1950 Arrival Date: 01/20/2021 Time: 09:16 Bed 4 Private MD: Diagnosis: Dizziness and giddiness Presentation: 01/20 09:29 Chief complaint: Patient states: Vertigo x a few weeks. Pt reports she was in [facility] for a crohns flare up and her Hgb was 7.0 and did not receive any blood products. Pt received an iron infusion Monday, but does not feel any better. Sent by Dr. Thompson this morning for low blood pressure and possible blood transfusion. Pt c/o dizziness with repositioning and fatigue/ shortness of breath on exertion. Coronavirus screen: Client denies travel out of the [place] in the last 14 days. Ebola Screen: Patient denies exposure to infectious person. Patient denies travel to an Ebola-affected area in the 21 days before illness onset. Initial Sepsis Screen: Does the patient meet any 2 criteria? No. Patient's initial sepsis screen is negative. Does the patient have a suspected source of infection? No. Patient's initial sepsis screen is negative. Risk Assessment: Do you want to hurt yourself or someone else? Patient reports no desire to harm self or others. Onset of symptoms is unknown. 09:29 Acuity: MATTI 2 ss 09:29 Method Of Arrival: Wheelchair ss Historical: - Allergies: 09:33 Zofran; 09:33 Remicade; 09:33 Inapsine; 09:33 Reglan; ss - PMHx: 09:33 Crohn's; Hypertension; TIA; Aortic aneurysm; DVT; 09:41 Atrial Fib; ss - PSHx: 09:33 Aortic aneurysm repair; Cholecystectomy; Hysterectomy; ss - Immunization history:: Adult Immunizations up to date. - Social history:: Smoking status: Patient denies any tobacco usage or history of. Screenin:48 Abuse screen: Denies threats or abuse. Nutritional screening: No deficits noted. em Tuberculosis screening: No symptoms or risk factors identified. Fall Risk Fall in past 12 months (25 points). Secondary diagnosis (15 points) impaired mobility, IV access (20 points). Mental Status- Overestimates/Forgets Limitations (15 pts.). Total Huerta Fall Scale indicates High Risk Score (45 or more points). Side Rails Up X 2 Placed Close to Nursing Station Frequent Obs/Assessments Occuring. Assessment: 10:20 General: Appears in no apparent distress. uncomfortable, Behavior is calm, cooperative. vg1 Pain: Denies pain. Neuro: Level of Consciousness is awake, alert, obeys commands, Oriented to person, place, time, situation, Reports dizziness. Cardiovascular: Capillary refill < 3 seconds. Respiratory: Airway is patent Respiratory effort is even, unlabored. GI: No signs and/or symptoms were reported involving the gastrointestinal system. : No signs and/or symptoms were reported regarding the genitourinary system. EENT: No signs and/or symptoms were reported regarding the EENT system. Derm: Skin is pale. Musculoskeletal: Circulation, motion, and sensation intact. 11:57 Reassessment: Patient appears in no apparent distress at this time. No changes from vg1 previously documented assessment. Patient and/or family updated on plan of care and expected duration. Pain level reassessed. Patient is alert, oriented x 3, equal unlabored respirations, skin warm/dry/pink. 12:40 Reassessment: Patient appears in no apparent distress at this time. Patient and/or vg1 family updated on plan of care and expected duration. Pain level reassessed. Patient is alert, oriented x 3, equal unlabored respirations, skin warm/dry/pink. 14:10 Reassessment: Ambulated pt; pt used walker from home; pt stated 'I feel better than I vg1 did when I first came in'; denies feeling dizzy. Provider notified. Vital Signs: 09:29 BP 91 / 70; Pulse 135; Resp 18; Temp 97.2(TE); Pulse Ox 99% on R/A; Weight 53.52 kg; ss Height 5 ft. 9 in. (175.26 cm); Pain 0/10; 10:50 BP 121 / 87; Pulse 118; Resp 20; Pulse Ox 100% ; sv 11:57 BP 141 / 83; Pulse 83; Resp 18; Pulse Ox 100% on R/A; vg1 12:40 BP 155 / 86; Pulse 76; Resp 15; Pulse Ox 100% ; sv 13:30 BP 151 / 91; Pulse 78; Resp 14; Pulse Ox 100% ; sv 14:00 BP 160 / 97; Pulse 77; Resp 20; Pulse Ox 100% on R/A; vg1 09:29 Body Mass Index 17.43 (53.52 kg, 175.26 cm) ED Course: 09:16 Patient arrived in ED. rg4 09:31 Triage completed. ss 09:33 Arm band placed on right wrist. ss 09:48 Pawan Stanley, RN is Primary Nurse. em 09:52 Kelechi Otero PA is PHCP. m 09:52 Margarito Larson MD is Attending Physician. jmm 10:18 Primary Nurse role handed off by Pawan Stanley RN em 10:19 CT Head Brain wo Cont In Process Unspecified. EDMS 10:19 Pawan Stanley, RN is Primary Nurse. em 10:25 EKG done, by ED staff, reviewed by Kelechi KIMBLE. vg1 10:31 XRAY Chest (1 view) In Process Unspecified. EDMS 10:55 Primary Nurse role handed off by Pawan Stanley RN vg1 10:55 Margarita Lucio, RN is Primary Nurse. vg1 10:56 Initial lab(s) drawn, by pa, sent to lab. Accessed Port-a-Cath. Blood collected. vg1 10:59 Patient has correct armband on for positive identification. Placed in gown. Bed in low vg1 position. Call light in reach. Side rails up X2. Adult w/ patient. 11:17 MRI - Brain Wo Cont In Process Unspecified. EDMS 15:14 No provider procedures requiring assistance completed. IV discontinued, intact, vg1 bleeding controlled, No redness/swelling at site. Pressure dressing applied. Administered Medications: 10:54 Drug: NS 0.9% 1000 ml Route: IV; Rate: 1 bolus; Site: Port-a-cath; vg1 13:50 Follow up: IV Status: Completed infusion; IV Intake: 1000ml vg1 11:54 Drug: Meclizine 25 mg Route: PO; vg1 13:51 Follow up: Response: No adverse reaction vg1 12:40 Drug: Valium (diazepam) 2 mg Route: IVP; Site: Port-a-cath; vg1 13:51 Follow up: Response: No adverse reaction vg1 15:13 Drug: HEParin Flush (100 units/mL) 500 units Route: IVP; Site: Port-a-cath; vg1 15:14 Follow up: Response: Medication administered at discharge. vg1 Intake: 13:50 IV: 1000ml; Total: 1000ml. vg1 Outcome: 14:37 Discharge ordered by . isabel 15:14 Discharged to home via wheelchair. vg1 15:14 Condition: stable 15:14 Discharge instructions given to patient, Instructed on discharge instructions, follow up and referral plans. Demonstrated understanding of instructions, follow-up care. 15:19 Prescriptions given X 1. vg1 15:19 Patient left the ED. vg1 Signatures: Dispatcher [employer] Emy Tavares, RN RN Kelechi Rader PA PA jmm Munoz, Edgar, RN RN Gayle Masters, RN RN Katheryn Wells4 Margarita Lucio RN RN vg1
[2021-01-20] MEDS ORDERED: HEPARIN 500 UNIT/5 ML SYR IV ONE (15:23)
[2021-01-20 15:24] VITALS: TEMP 97.2
[2021-01-20 15:25] VITALS: O2SAT 100
[2021-01-20 15:31] VITALS: BP 160/97
== END 2021-01-20 15:19 | disposition home or self-care (01) ==
LOC: ER 09:14
DX: R42 Dizziness and giddiness (principal); I10 Essential (primary) hypertension; Z88.8 Allergy status to other drugs, medicaments and biological substances; Z86.718 Personal history of other venous thrombosis and embolism; Z86.73 Personal history of transient ischemic attack (TIA), and cerebral infarction without residual deficits
CPT/HCPCS: 96361; 93005; 85025; 80048; 36415; 86900; 83735; 86850; 85610; 86901; 80076; 84484; 83880; 70450; 71045; 70551; 96375; 96374; 99284; J3360; J1642; J7030